=== PATIENT | male | born 1960 | race Caucasian/White ===

== ENCOUNTER 2020-07-14 12:07 | Emergency (ER) | payer OTHER, SELFPAY ==
[2020-07-14 12:30] VITALS: BP 152/90; PULSE 70; RESP 16; TEMP 36.8; O2SAT 97; BMI 39.9
--- NOTE | 2020-07-14 14:09 | ED_ITS ---
HPI - Back Pain/Injury <Susu Youssef, GRILL ASSOCIATE-BC - Last Filed: 07/14/20 18:55> General Chief Complaint: Back Pain/Injury Stated Complaint: back, pinched nerve, flat on back all week Time Seen by Provider: 07/14/20 13:36 Source: patient Mode of arrival: Ambulatory Limitations: no limitations History of Present Illness HPI Narrative: The patient is a 59 year old male who presents with a chief c omplaint of lower back pain. This has been going on for approximately 10-14 days. He states he saw [facility] on Friday and was given an injection of a steroid. He states that this has not helped his pain or his numbness going down his left leg. He denies any incontinence of bowel, incontinence of bladder or saddle anesthesia. He states he has never had incontinence of bowel, incontinence of bladder saddle anesthesia throughout his back pain episodes. He states his pain is worse with movement. He states he is doing really good resting and lying flat for the past few days, but then yesterday he spent a lot of time sitting during Thanksgiving. He took acetaminophen and naproxen at 10:30 a.m. with no relief. He also took 5 mg cyclobenzaprine this morning at the same time. He denies any fevers nausea vomiting diarrhea. Denies any chest pain or shortness of breath. Related Data Home Medications Medication Instructions Recorded Confirmed aspirin 81 mg PO QDAY #0 07/02/16 06/05/20 citalopram 10 mg PO QDAY #0 07/02/16 06/05/20 telmisartan-hydrochlorothiazid 1 tab PO QDAY #0 07/02/16 06/05/20 [Micardis HCT] vitamin B complex [B 1 tab PO QDAY #0 07/02/16 06/05/20 Complex-Vitamin B12] bupropion HCl 300 mg 24 hr tablet, 300 mg PO QAM 08/31/19 06/05/20 extended release Previous Rx's Medication Instructions Recorded albuterol sulfate 90 mcg/actuation 2 puff INHALATION Q4-6H PRN #8.5 06/16/19 aerosol inhaler gram cyclobenzaprine 10 mg tablet 10 mg PO BID #20 tab 06/05/20 cyclobenzaprine 10 mg PO TID PRN #10 tab 07/14/20 hydrocodone-acetaminophen [Cheyenne] 1 tab PO Q4-6H PRN #10 tab 07/14/20 lidocaine 1 patch TOPICAL DAILY PRN #15 ea 07/14/20 prednisone 40 mg PO DAILY #8 tab 07/14/20 Allergies Allergy/AdvReac Type Severity Reaction Status Date / Time No Known Drug Allergies Allergy Verified 07/14/20 12:34 Review of Systems <RENNY Rodrigez - Last Filed: 07/14/20 18:55> Review of Systems Narrative: GENERAL: Denies chills, fatigue, malaise, fever, sweats. HEENT: Denies sinus pain, ear pain, sore throat, difficulty swallowing, dizziness. RESPIRATORY: Denies dyspnea, cough, wheezing, hemoptysis, sputum. CARDIOVASCULAR: Denies chest pain, palpitations, orthopnea, edema, GASTROINTESTINAL: Denies nausea, vomiting, abdominal pain, diarrhea, constipation, melena. : Denies dysuria, frequency, incontinence, hematuria, urinary retention. MUSCULOSKELETAL: See HPI SKIN: Denies rash, skin lesions, or other NEUROLOGIC: See HPI PSYCHIATRIC: No concerning psychosocial issues. 12 point review of systems is negative except for those stated above Patient History <RENNY Rodrigez - Last Filed: 07/14/20 18:55> Medical History (Updated 07/14/20 @ 17:21 by RENNY Rodrigez) Low back strain Social History Smoking Status: Never smoker Smoking Status: Never smoker alcohol intake frequency: holidays/special occasions only Substance Use Type: does not use Exam <RENNY Rodrigez - Last Filed: 07/14/20 18:55> Narrative Exam Narrative: GENERAL: This is a well-nourished, well-developed patient, lying on stretcher appears slightly uncomfortable HEAD: Atraumatic. Normocephalic. No temporal or scalp tenderness. EYES: Pupils equal round and reactive. Extraocular motions intact. No scleral icterus. No injection or drainage. ENT: Nose without bleeding, purulent drainage or septal hematoma. Throat without erythema, tonsillar hypertrophy or exudate. Uvula midline. Airway patent. NECK: Trachea midline. No JVD or lymphadenopathy. Supple, nontender, no meningeal signs. CARDIOVASCULAR: Regular rate and rhythm RESPIRATORY: Clear to auscultation. Breath sounds equal bilaterally. No wheezes, rales, or rhonchi. No cough. No increased respiratory effort. No accessory muscle use. GASTROINTESTINAL: Abdomen soft, non-tender, nondistended. No hepato- splenomegaly, or palpable masses. No guarding. Active bowel sounds all 4 quadrants. EXTREMITIES: No clubbing, cyanosis, or edema. No joint tenderness, effusion, or edema noted. Strength is equal upper and lower extremities bilaterally. BACK: Pain to palpation of lumbar spine, no pain to palpation of T or C-spine. No palpable step-offs or deformities. No crepitance noted. Patient has pain to palpation of left paraspinal muscle, radiating down to left buttock. NEURO: AOx3. SKIN: No rash or erythema on visible skin. No erythema rash or abrasion overlying or act Initial Vital Signs Initial Vital Signs: Vital Signs Temperature 98.2 F 07/14/20 12:30 Pulse Rate 70 07/14/20 12:30 Respiratory Rate 16 07/14/20 12:30 Blood Pressure 152/90 H 07/14/20 12:30 Pulse Oximetry 97 07/14/20 12:30 <Susu Beard DO - Last Filed: 07/14/20 19:35> Initial Vital Signs Initial Vital Signs: Vital Signs Temperature 98.2 F 07/14/20 12:30 Pulse Rate 70 07/14/20 12:30 Respiratory Rate 16 07/14/20 12:30 Blood Pressure 152/90 H 07/14/20 12:30 Pulse Oximetry 97 07/14/20 12:30 Scores <RENNY Rodrigez - Last Filed: 07/14/20 18:55> GCS [place] coma scale eye opening: Spontaneous [place] coma scale verbal response: Orientated [place] coma scale motor response: Obey commands [place] coma scale total score: 15 Course <RENNY Rodrigez - Last Filed: 07/14/20 18:55> Orders Ordered: Discontinued Medications Hydrocodone Bitart/Acetaminophen (Hydrocodone/Acet 5/325 Tablet) 1 tab PO NOW ONE Stop: 07/14/20 15:08 Last Admin: 07/14/20 15:50 Dose: 1 tab Documented by: RMARTIN Cyclobenzaprine HCl (Cyclobenzaprine 5 Mg Tablet) 5 mg PO NOW ONE Stop: 07/14/20 14:06 Last Admin: 07/14/20 14:18 Dose: 5 mg Documented by: JOSE CARLOS Lidocaine (Lidocaine Patch 1 Each Adh..Patch) 1 each TOP NOW ONE Stop: 07/14/20 14:06 Last Admin: 07/14/20 14:18 Dose: 1 each Documented by: JOSE CARLOS Prednisone (Prednisone 20 Mg Tablet) 60 mg PO NOW ONE Stop: 07/14/20 15:15 Last Admin: 07/14/20 15:50 Dose: 60 mg Documented by: JOSE CARLOS Vital Signs Vital signs: Vital Signs - 8 hr 07/14/20 12:30 07/14/20 14:30 07/14/20 15:57 Temperature 98.2 F Pulse Rate 70 68 55 L Respiratory Rate 16 18 16 Blood Pressure 152/90 H 178/72 H 171/97 H Pulse Oximetry 97 97 97 07/14/20 16:27 07/14/20 17:46 Temperature Pulse Rate 67 50 L Respiratory Rate 16 18 Blood Pressure 150/85 H 154/84 H Pulse Oximetry 99 96 <Susu Beard, - Last Filed: 07/14/20 19:35> Orders Ordered: Discontinued Medications Hydrocodone Bitart/Acetaminophen (Hydrocodone/Acet 5/325 Tablet) 1 tab PO NOW ONE Stop: 07/14/20 15:08 Last Admin: 07/14/20 15:50 Dose: 1 tab Documented by: JOSE CARLOS Cyclobenzaprine HCl (Cyclobenzaprine 5 Mg Tablet) 5 mg PO NOW ONE Stop: 07/14/20 14:06 Last Admin: 07/14/20 14:18 Dose: 5 mg Documented by: JOSE CARLOS Lidocaine (Lidocaine Patch 1 Each Adh..Patch) 1 each TOP NOW ONE Stop: 07/14/20 14:06 Last Admin: 07/14/20 14:18 Dose: 1 each Documented by: JOSE CARLOS Prednisone (Prednisone 20 Mg Tablet) 60 mg PO NOW ONE Stop: 07/14/20 15:15 Last Admin: 07/14/20 15:50 Dose: 60 mg Documented by: JOSE CARLOS Vital Signs Vital signs: Vital Signs - 8 hr 07/14/20 12:30 07/14/20 14:30 07/14/20 15:57 Temperature 98.2 F Pulse Rate 70 68 55 L Respiratory Rate 16 18 16 Blood Pressure 152/90 H 178/72 H 171/97 H Pulse Oximetry 97 97 97 07/14/20 16:27 07/14/20 17:46 Temperature Pulse Rate 67 50 L Respiratory Rate 16 18 Blood Pressure 150/85 H 154/84 H Pulse Oximetry 99 96 [facility] - Back Pain/Injury <KATIE RodrigezP-BC - Last Filed: 07/14/20 18:55> [facility] Narrative Medical decision making narrative: The patient is a 59 year old male who presents with a chief complaint of lower back pain. He had a steroid injection earlier this week. He denies any fevers nausea vomiting, constitutional symptoms, but states understanding that these are strict return precautions. He has no incontinence of bowel, incontinence of bladder numbness in his groin and adamantly declines a rectal exam during his ER stay. I did discuss that these are strict return precautions and he is to come back to the ER if these reoccurred. He feels much improved after the above-stated therapies. I encouraged rest, follow-up with primary care provider as well as orthopedist. The patient has no questions or concerns upon discharge and states understanding return precautions as well as follow-up care. He is able to ambulate well throughout his stay in the ER. Discharge Plan Departure Patient Disposition: Home Clinical Impression: Low back strain Qualifiers: Encounter type: initial encounter Qualified Code(s): S39.012A - Strain of muscle, fascia and tendon of lower back, initial encounter Acute low back pain Qualifiers: Back pain laterality: left Sciatica presence: with sciatica Sciatica laterality: sciatica of left side Qualified Code(s): M54.42 - Lumbago with sciatica, left side Instructions: DI for Low Back Pain, DI for Back Spasm, DI for Back Strain or Sprain Activity Restrictions/Additional Instructions: Thank you for trusting us with your care today. As discussed, please follow-up with primary care provider as well as your orthopedist. I sent four prescriptions to [facility]. As discussed, please come back to the ER for acute concerns include incontinence of bowel, incontinence of bladder or numbness in your groin. Also please monitor for fevers, muscle aches chills and signs of systemic illness. Please follow-up with this occurs. I have given you a prescription of a narcotic for pain. Be aware that this can be constipating and sedating. I encouraged taking with a stool softener, pushing fluids and fiber. Do not take and drive, operate heavy machinery, etc. Do not combine it with any other sedating substances such as alcohol. The combination of narcotics and alcohol and/or other sedatives can be lethal. I also sent a prescription of Flexeril or cyclobenzaprine which can be sedating. Do not take this and drive. Additionally I have given you a prescription of lidocaine patches. Please do not use heat over these patches. Prescriptions: New hydrocodone-acetaminophen [[place]yenne] 5-325 mg tablet 1 tab PO Q4-6H PRN (Reason: pain) Qty: 10 RF: 0 cyclobenzaprine 10 mg tablet 10 mg PO TID PRN (Reason: muscle spasm) Qty: 10 RF: 0 lidocaine 5 % adhesive patch,medicated 1 patch topical DAILY PRN (Reason: pain ) Qty: 15 RF: 0 prednisone 20 mg tablet 40 mg PO DAILY Qty: 8 RF: 0 No Action albuterol sulfate 90 mcg/actuation HFA aerosol inhaler 2 puff INHALATION Q4-6H PRN (Reason: bronchospasm) Qty: 8.5 RF: 0 cyclobenzaprine 10 mg tablet 10 mg PO BID Qty: 20 RF: 0 bupropion HCl 300 mg tablet extended release 24 hr 300 mg PO QAM RF: 0 telmisartan-hydrochlorothiazid [Micardis HCT] 40 MG/12.5 MG tablet 1 tab PO QDAY Qty: 0 RF: 0 citalopram 10 MG tablet 10 mg PO QDAY Qty: 0 RF: 0 aspirin 81 MG tablet,delayed release (DR/EC) 81 mg PO QDAY Qty: 0 RF: 0 vitamin B complex [B Complex-Vitamin B12] 1 EACH tablet 1 tab PO QDAY Qty: 0 RF: 0 Referrals: Leoncio Castorena MD [Primary Care Provider] - <Susu Beard DO - Last Filed: 07/14/20 19:35> Cosign ED Attending Cosignature Attestation: I was immediately available in the department for consultation. This documentation has been reviewed and I agree with assessment and plan, case was discussed. No red flag symptoms at this time. Supervised by Susu Beard DO
[2020-07-14] MEDS: LIDOCAINE PATCH 1 EACH ADH..PATCH TOP (14:18)
[2020-07-14] MEDS: CYCLOBENZAPRINE 5 MG TABLET PO (14:18)
[2020-07-14 14:30] VITALS: BP 178/72; PULSE 68; RESP 18; O2SAT 97
[2020-07-14] MEDS: HYDROCODONE/ACET 5/325 TABLET 1 TAB PO (15:50)
[2020-07-14] MEDS: predniSONE 20 MG TABLET 60 MG PO (15:50)
[2020-07-14 15:57] VITALS: BP 171/97; PULSE 55; RESP 16; O2SAT 97
[2020-07-14 16:27] VITALS: BP 150/85; PULSE 67; RESP 16; O2SAT 99
[2020-07-14 17:46] VITALS: BP 154/84; PULSE 50; RESP 18; O2SAT 96
== END 2020-07-14 17:48 | disposition home or self-care (01) ==
PROVIDERS: Emergency Provider Nurse Practitioner Family; PCP Internal Medicine
DX: S39.012A Strain of muscle, fascia and tendon of lower back, initial encounter (principal); M54.42 Lumbago with sciatica, left side; R20.0 Anesthesia of skin
CPT/HCPCS: 99281; 99283

== ENCOUNTER → 2020-07-21 17:42 | Outpatient (CLI) | payer OTHER, SELFPAY ==
--- NOTE | 2020-07-21 | DI.MRI.S_ITS ---
PROCEDURE: MR LUMBAR SPINE WO CON INDICATIONS: Radiculopathy, lumbar region TECHNIQUE: Noncontrast sagittal T1 spin echo and T2 fast echo, sagittal STIR, axial T1 and T2 fast spin echo through the lumbar spine. In cases with scoliosis, additional coronal T2 fast spin echo may be performed. COMPARISON: [facility] [place], CR, XR LUMBAR SPINE WITH OLBIQUES PLUS FLEXION EXTENSION, 07/10/2020, 14:39. FINDINGS: Image quality: Excellent. Alignment and Curvature: Mild retrolisthesis is seen at the L3-L4 level. Minimal retrolisthesis is seen at L5-S1. Bone Marrow: Marrow is of normal overall signal. No acute vertebral body compression fractures. Spinal Cord: Conus medullaris terminates at the L1 level. Visualized cord demonstrates normal signal and size. Paraspinous Soft Tissues: No paravertebral masses. T12-L1: No significant abnormality is seen. L1-L2: Normal appearance. L2-L3: The disc height and disk signal are well-preserved. Moderate generalized disc bulge is seen. There is moderate right-sided and [id number] left-sided facet hypertrophy seen. There is moderate bilateral neural foraminal narrowing seen. Moderate central canal narrowing is seen. L3-L4: Moderate loss of disc height is seen. Loss of disc signal is seen. Moderate to prominent disc bulge is seen. There is a central disc protrusion. At least moderate facet hypertrophy is seen at this level. Moderate to severe bilateral neural foraminal narrowing can be seen, right worse than left. There is a degree of compression seen upon the exiting nerve roots. Moderate to severe central canal narrowing is seen, as on series 4, image 21. L4-L5: At least moderate loss of disc height and disc signal can be seen. At least moderate disc bulge is seen, which is eccentric to the right. There is a right lateral recess disc extrusion, with superior migration of the disc material, as on series 2, image 9. Moderate facet joint hypertrophy is seen. Moderate to severe bilateral neural foraminal narrowing can be seen, right worse than left. There is a degree of compression seen upon the exiting nerve roots. There is severe central canal narrowing, which is worsened by prominent epidural fat, as on series 4, image 25. L5-S1: At least moderate loss of disc height and disc signal can be seen. Reactive marrow endplate changes are seen, which are hyperintense on T1-weighted and T2-weighted imaging and most consistent with fatty metaplasia (Modic type II changes). At least moderate disc bulge is seen, which is eccentric to the left. There is a central/left disc protrusion seen. Moderate facet joint hypertrophy is seen. There is moderate to severe bilateral neural foraminal narrowing seen, left worse than right. There is a degree of compression seen upon the exiting nerve roots. Moderate central canal narrowing is seen. IMPRESSION: Relatively prominent lower lumbar spine degenerative changes are seen. Moderate to severe bilateral neural foraminal narrowing can be seen at L3-L4, L4-L5, and L5-S1, with associated exiting nerve root compression. There is moderate to severe central canal narrowing at the L3-L4 and severe central canal narrowing at L4-L5. Dictated by: Kirk Healy M.D. on 07/21/2020 at 17:23 Approved by: Kirk Healy M.D. on 07/21/2020 at 17:27
== END ==
PROVIDERS: PCP Internal Medicine; Referring Provider Internal Medicine; Visit Provider Physical Medicine & Rehabilitation Pain Medicine
DX: M47.26 Other spondylosis with radiculopathy, lumbar region (principal); M48.061 Spinal stenosis, lumbar region without neurogenic claudication; M48.07 Spinal stenosis, lumbosacral region
CPT/HCPCS: 72148

== ENCOUNTER 2020-08-05 12:12 | Emergency (ER) | payer OTHER, SELFPAY ==
[2020-08-05] VITALS (17 sets, daily range): BP systolic 135–195; BP diastolic 62–97; PULSE 53–63; RESP 14–18; TEMP 36.9; O2SAT 92–99; BMI 41.3
--- NOTE | 2020-08-05 12:30 | ED.BACK ---
HPI - Back Pain/Injury General Chief Complaint: Back Pain/Injury Stated Complaint: Back Pain Time Seen by Provider: 08/05/20 12:23 Source: patient and EMS Mode of arrival: EMS Limitations: no limitations History of Present Illness HPI Narrative: Patient is a 59-year-old male who presents with worsening back pain. He has acute on chronic back pain he has had injections in the past in fact yesterday he had an epidural with [facility]. He said yesterday he felt great and this morning he woke up early with debilitating pain. He has gabapentin and pain medication at home but it was on bearable. He describes it as a spasm. He has been doing ice and heat at nothing seems to be making it worse. He denies any loss of bowel or urine. He denies any fever or lower extremity weakness. Related Data Home Medications Medication Instructions Recorded Confirmed aspirin 81 mg PO QDAY #0 07/02/16 06/05/20 citalopram 10 mg PO QDAY #0 07/02/16 06/05/20 telmisartan-hydrochlorothiazid 1 tab PO QDAY #0 07/02/16 06/05/20 [Micardis HCT] vitamin B complex [B 1 tab PO QDAY #0 07/02/16 06/05/20 Complex-Vitamin B12] bupropion HCl 300 mg 24 hr tablet, 300 mg PO QAM 08/31/19 06/05/20 extended release Previous Rx's Medication Instructions Recorded albuterol sulfate 90 mcg/actuation 2 puff INHALATION Q4-6H PRN #8.5 06/16/19 aerosol inhaler gram cyclobenzaprine 10 mg tablet 10 mg PO BID #20 tab 06/05/20 cyclobenzaprine 10 mg PO TID PRN #10 tab 07/14/20 hydrocodone-acetaminophen [[place]] 1 tab PO Q4-6H PRN #10 tab 07/14/20 lidocaine 1 patch TOPICAL DAILY PRN #15 ea 07/14/20 prednisone 40 mg PO DAILY #8 tab 07/14/20 diazepam [Valium] 5 mg PO Q12HR PRN #10 tab 08/05/20 Allergies Allergy/AdvReac Type Severity Reaction Status Date / Time No Known Drug Allergies Allergy Verified 08/05/20 12:26 Review of Systems Review of Systems Narrative: GENERAL: Denies chills, fatigue, malaise, fever, sweats, travel HEENT: Denies sinus pain, ear pain, sore throat, difficulty swallowing, neck pain RESPIRATORY: Denies dyspnea, cough, wheezing, hemoptysis, sputum. CARDIOVASCULAR: Denies chest pain, palpitations, orthopnea, edema GASTROINTESTINAL: Denies nausea, vomiting, abdominal pain, diarrhea, constipation, melena. : Denies dysuria, frequency, incontinence, hematuria, urinary retention, flank pain. MUSCULOSKELETAL: See HPI SKIN: No rash, no erythema, no pruritus NEUROLOGIC: Denies weakness, dizziness, headache, numbness, change in speech, confusion PSYCHIATRIC: No concerning psychosocial issues. 12 point review of systems is negative except for those stated above and HPI Patient History Medical History Low back strain Social History Smoking Status: Never smoker Smoking Status: Never smoker alcohol intake frequency: holidays/special occasions only Substance Use Type: marijuana Exam Initial Vital Signs Initial Vital Signs: Vital Signs Pulse Rate 63 08/05/20 12:19 Pulse Oximetry 98 08/05/20 12:19 GENERAL: Patient yelling and screaming in and in no acute distress. HEENT: Head atraumatic,EOMI, pupils reactive, face symmetric, moist mucous membranes CARDIOVASCULAR: Regular rate and rhythm without murmurs, rubs or gallops. RESPIRATORY: Breath sounds equal bilaterally, no wheezes rales or rhonchi. ABDOMEN: Soft, nontender. Normoactive bowel sounds all 4 quadrants. No guarding or rebound. BACK: Tender left lumbar area EXTREMITIES: Normal range of motion, no clubbing or edema. Neurovascularly intact NEUROLOGICAL: Alert and oriented x4.Normal gait and speech. Neurovascularly intact in the lower extremities SKIN: Warm, dry, no laceration, no petechiae, no rashes or lesions. Course Orders Ordered: ED Orders 08/05/20 12:36 MR lumbar spine wo/w con Stat 08/05/20 13:02 Complete Blood Count AUTO DIFF Stat Comprehensive Metabolic Panel Stat Discontinued Medications Diazepam (Diazepam 10 Mg/2 Ml Syringe) 2 mg IV NOW ONE Stop: 08/05/20 12:37 Last Admin: 08/05/20 12:47 Dose: 2 mg Documented by: KSWACKH Hydromorphone HCl (Hydromorphone 1 Mg Inj) 1 mg IM NOW ONE Stop: 08/05/20 12:37 Last Admin: 08/05/20 12:47 Dose: 1 mg Documented by: ANTWON Hydromorphone HCl (Hydromorphone 1 Mg Inj) 1 mg IV NOW ONE Stop: 08/05/20 14:10 Last Admin: 08/05/20 14:13 Dose: 1 mg Documented by: JOSE CARLOS Ketorolac Tromethamine (Ketorolac 60 Mg/2 Ml Vial) 30 mg IV NOW ONE Stop: 08/05/20 16:56 Last Admin: 08/05/20 17:00 Dose: 30 mg Documented by: ALIVIA Vital Signs Vital signs: Vital Signs - 8 hr 08/05/20 12:19 08/05/20 12:21 08/05/20 12:22 Temperature 98.4 F Pulse Rate 63 61 59 L Respiratory Rate 14 Blood Pressure 182/97 H 186/90 H Pulse Oximetry 98 97 99 08/05/20 12:30 08/05/20 13:00 08/05/20 13:01 Temperature Pulse Rate 58 L 63 61 Respiratory Rate Blood Pressure 195/93 H 151/67 H Pulse Oximetry 96 94 92 08/05/20 13:30 08/05/20 13:55 08/05/20 15:04 Temperature Pulse Rate 55 L 55 L 58 L Respiratory Rate 16 Blood Pressure 140/68 135/77 Pulse Oximetry 93 95 95 08/05/20 15:30 08/05/20 15:31 08/05/20 16:00 Temperature Pulse Rate 60 57 L 58 L Respiratory Rate Blood Pressure 138/66 Pulse Oximetry 92 92 94 08/05/20 16:01 08/05/20 16:30 08/05/20 16:31 Temperature Pulse Rate 56 L 56 L 56 L Respiratory Rate 16 16 16 Blood Pressure 139/62 143/65 H Pulse Oximetry 94 95 94 08/05/20 17:00 08/05/20 17:01 Temperature Pulse Rate 53 L 57 L Respiratory Rate 18 Blood Pressure 142/70 H Pulse Oximetry 94 95 MDM - Back Pain/Injury Lab Data Attestation: I reviewed the patient's lab results. Result diagrams: 08/05/20 13:02 08/05/20 13:02 Labs: Lab Results 08/05/20 08/05/20 Range/Units 13:02 13:02 WBC 11.5 H (4.5-11.0) X10^3/uL RBC 4.66 (4.5-5.9) X10^6/uL Hgb 13.9 (13.5-17.5) g/dL Hct 41.4 (41-53) % MCV 88.8 (80-100) fL MCH 29.8 (26-34) PG MCHC 33.6 (30-36) % RDW 14.1 (11.6-14.8) % Plt Count 192 (150-400) X10^3/uL Neut % (Auto) 75.0 (50-75) % Lymph % (Auto) 17.2 L (25-40) % [place] % (Auto) 6.2 (3-14) % Eos % (Auto) 1.2 L (2-4) % Baso % (Auto) 0.4 (0-2) % Neut # (Auto) 8600 H (8793-7147) /uL Lymph # (Auto) 2000 (0682-0504) /uL [place] # (Auto) 700 (0-900) /uL Eos # (Auto) 100 (0-450) /uL Baso # (Auto) 100 (0-100) /uL Sodium 137 (137-145) mmol/L Potassium 4.4 (3.4-5.1) mmol/L Chloride 102 (98-107) mmol/L Carbon Dioxide 30 (22-32) mmol/L BUN 34 H (9-20) mg/dL Creatinine 1.10 (0.66-1.25) mg/dL Estimated GFR > 60.0 (>60) mL/min BUN/Creatinine Ratio 30.9 H (6-22) Glucose 168 H (80-110) mg/dL Calcium 9.8 (8.4-10.2) mg/dL Total Bilirubin 0.6 (0.2-1.3) mg/dL AST 18 (17-59) IU/L ALT 30 (<50) IU/L Alkaline Phosphatase 56 (38-126) U/L Total Protein 7.2 (6.3-8.2) g/dL Albumin 4.2 (3.5-5.0) g/dL Globulin 3.0 (1.7-4.1) g/dL Albumin/Globulin Ratio 1.4 (1.0-2.8) Imaging Data MRI lumbar: Radiologist's Impression: PROCEDURE: MR LUMBAR SPINE WO/W CON INDICATIONS: Increased pain epidural yesterday TECHNIQUE: Noncontrast sagittal T1 spin echo and T2 fast spin echo, sagittal STIR, axial T1 and T2 fast spin echo through the lumbar spine. In cases with scoliosis, additional coronal T2 fast spin echo may be performed. After the administration of contrast, sagittal and axial T1 spin echo with fat saturation through the lumbar spine. COMPARISON: [facility] [place], CR, XR LUMBAR SPINE WITH OLBIQUES PLUS FLEXION EXTENSION, 07/10/2020, 14:39. [facility], , MR LUMBAR SPINE WO CON, 07/21/2020, 17:50. FINDINGS: Image quality: Excellent. Alignment and curvature: Mild retrolisthesis of L3 on L4. Minimal retrolisthesis of L5 on S1. Unchanged. Marrow: Marrow is of normal overall signal. No acute vertebral body compression fractures. No suspicious marrow enhancement. Spinal cord: Conus medullaris terminates at the L1 level. Visualized spinal cord demonstrates normal signal, without suspicious enhancement. No fluid collection within the thecal sac is identified. No abnormal enhancement is identified. No interval change is appreciated. Paraspinous soft tissues: No paravertebral masses or abnormal enhancement. Mild lumbar edema, unchanged. Moderate degenerative change. Moderate to severe DDD. No significant change appreciated compared to recent lumbar spine MRI 07/21/2020. Right paracentral disc protrusions at L3-L4, L4-L5, and L5-S1 are unchanged. Prominent epidural fat signal left at L4 is unchanged, (5/24). No suspicious enhancement at this site. Slightly superior to this site is a small focus of suspected extruded disc material which is unchanged in size and appearance compared to 07/21/2020. IMPRESSION: 1. No epidural abscess or fluid collection is identified. No suspicious enhancement. 2. Overall no interval change is appreciated. 3. Lower lumbar spine disc protrusions and disc extrusion are unchanged in the short-term interval. Severe central canal stenosis at L4-L5 is unchanged. Dictated by: Sonu Grimaldo M.D. on 08/05/2020 at 15:26 Approved by: Sonu Grimaldo M.D. on 08/05/2020 at 15:45 MDM Narrative Medical decision making narrative: Patient's pain was significantly improved dilaudid and Valium. He does not have any neurologic symptoms except for increased pain after procedure. Concern for epidural hematoma or abscess. Patient is afebrile mild leukocytosis. Pain medication really has seem to help calm him down. MR is luckily negative. Will discharge patient home with Valium recommend nonstrenuous activity. Discharge Plan Departure Patient Disposition: Home Clinical Impression: Low back strain Instructions: DI for Back Spasm Activity Restrictions/Additional Instructions: *You have been diagnosed with low back pain with spasm *What to do: Recommend light activity no strenuous activity or heavy lifting. Recommend heat. *Continue to take medications as directed Valium 5 mg every 12 hours if needed for muscle spasm Ibuprofen 600 mg every 6-8 hours if needed for [id number] pain *Follow up with your primary care provider in 2-3 days *Return to ER if you should have increasing pain changes in bowel or urine, it weakness numbness or tingling or any new, worsening or concerning symptoms Prescriptions: New diazepam [Valium] 5 mg tablet 5 mg PO Q12HR PRN (Reason: muscle spasm) Qty: 10 RF: 0 No Action albuterol sulfate 90 mcg/actuation HFA aerosol inhaler 2 puff INHALATION Q4-6H PRN (Reason: bronchospasm) Qty: 8.5 RF: 0 cyclobenzaprine 10 mg tablet 10 mg PO BID Qty: 20 RF: 0 bupropion HCl 300 mg tablet extended release 24 hr 300 mg PO QAM RF: 0 telmisartan-hydrochlorothiazid [Micardis HCT] 40 MG/12.5 MG tablet 1 tab PO QDAY Qty: 0 RF: 0 citalopram 10 MG tablet 10 mg PO QDAY Qty: 0 RF: 0 aspirin 81 MG tablet,delayed release (DR/EC) 81 mg PO QDAY Qty: 0 RF: 0 vitamin B complex [B Complex-Vitamin B12] 1 EACH tablet 1 tab PO QDAY Qty: 0 RF: 0 hydrocodone-acetaminophen [[place]] 5-325 mg tablet 1 tab PO Q4-6H PRN (Reason: pain) Qty: 10 RF: 0 cyclobenzaprine 10 mg tablet 10 mg PO TID PRN (Reason: muscle spasm) Qty: 10 RF: 0 lidocaine 5 % adhesive patch,medicated 1 patch topical DAILY PRN (Reason: pain ) Qty: 15 RF: 0 prednisone 20 mg tablet 40 mg PO DAILY Qty: 8 RF: 0 Referrals: Leoncio Castorena MD [Primary Care Provider] -
--- NOTE | 2020-08-05 12:36 | DI.MRI.S_ITS ---
PROCEDURE: MR LUMBAR SPINE WO/W CON INDICATIONS: Increased pain epidural yesterday TECHNIQUE: Noncontrast sagittal T1 spin echo and T2 fast spin echo, sagittal STIR, axial T1 and T2 fast spin echo through the lumbar spine. In cases with scoliosis, additional coronal T2 fast spin echo may be performed. After the administration of contrast, sagittal and axial T1 spin echo with fat saturation through the lumbar spine. COMPARISON: [facility] [place], CR, XR LUMBAR SPINE WITH OLBIQUES PLUS FLEXION EXTENSION, 07/10/2020, 14:39. [facility], , MR LUMBAR SPINE WO CON, 07/21/2020, 17:50. FINDINGS: Image quality: Excellent. Alignment and curvature: Mild retrolisthesis of L3 on L4. Minimal retrolisthesis of L5 on S1. Unchanged. Marrow: Marrow is of normal overall signal. No acute vertebral body compression fractures. No suspicious marrow enhancement. Spinal cord: Conus medullaris terminates at the L1 level. Visualized spinal cord demonstrates normal signal, without suspicious enhancement. No fluid collection within the thecal sac is identified. No abnormal enhancement is identified. No interval change is appreciated. Paraspinous soft tissues: No paravertebral masses or abnormal enhancement. Mild lumbar edema, unchanged. Moderate degenerative change. Moderate to severe DDD. No significant change appreciated compared to recent lumbar spine MRI 07/21/2020. Right paracentral disc protrusions at L3-L4, L4-L5, and L5-S1 are unchanged. Prominent epidural fat signal left at L4 is unchanged, (5/). No suspicious enhancement at this site. Slightly superior to this site is a small focus of suspected extruded disc material which is unchanged in size and appearance compared to 07/21/2020. IMPRESSION: 1. No epidural abscess or fluid collection is identified. No suspicious enhancement. 2. Overall no interval change is appreciated. 3. Lower lumbar spine disc protrusions and disc extrusion are unchanged in the short-term interval. Severe central canal stenosis at L4-L5 is unchanged. Dictated by: Sonu Grimaldo M.D. on 08/05/2020 at 15:26 Approved by: Sonu Grimaldo M.D. on 08/05/2020 at 15:45
[2020-08-05] MEDS: diazePAM 10 MG/2 ML SYRINGE 2 MG IV (12:47)
[2020-08-05] MEDS: HYDROMORPHONE 1 MG INJ IM (12:47)
--- NOTE | 2020-08-05 12:58 | PC.NURSE ---
alida arrived with ems, states he had an epidural yesterday and premedicated for it. today he states he woke up in extreme pain. moaning and yelling out in pain. unable to get comfortable on the stretcher. states he took 2 oxys and 4 extra strength tylenol at home with no relief.
[2020-08-05 13:08] LABS: Add Manual Diff / Slide Review NO; Basophils Absolute Auto 100 /uL (0-100); Basophils Percent Auto 0.4 % (0-2); Eosinophils Absolute Auto 100 /uL (0-450); Eosinophils Percent Auto 1.2 % (2-4); Hematocrit 41.4 % (41-53); Hemoglobin 13.9 g/dL (13.5-17.5); Lymphocytes Absolute Auto 2000 /uL (1100-4500); Lymphocytes Percent Auto 17.2 % (25-40); Mean Corpuscular HGB Conc 33.6 % (30-36); Mean Corpuscular Hemoglobin 29.8 PG (26-34); Mean Corpuscular Volume 88.8 fL (80-100); Monocytes Absolute Auto 700 /uL (0-900); Monocytes Percent Auto 6.2 % (3-14); Neutrophils Absolute Auto 8600 /uL (1500-7000); Platelet Count 192 X10^3/uL (150-400); Red Blood Cell Count 4.66 X10^6/uL (4.5-5.9); Red Cell Distribution Width 14.1 % (11.6-14.8); White Blood Cell Count 11.5 X10^3/uL (4.5-11.0)
[2020-08-05 13:19] LABS: Alanine Aminotransferase 30 IU/L (<50); Albumin 4.2 g/dL (3.5-5.0); Albumin Globulin Ratio 1.4 (1.0-2.8); Alkaline Phosphatase 56 U/L (38-126); Aspartate Aminotransferase 18 IU/L (17-59); BUN Creatinine Ratio 30.9 (6-22); Bilirubin Total 0.6 mg/dL (0.2-1.3); Blood Urea Nitrogen 34 mg/dL (9-20); Calcium 9.8 mg/dL (8.4-10.2); Carbon Dioxide 30 mmol/L (22-32); Chloride 102 mmol/L (98-107); Estimated Glomerular Filt Rate > 60.0 mL/min (>60); Glucose 168 mg/dL (80-110); HEMOLYSIS < 15 (0-50); Potassium 4.4 mmol/L (3.4-5.1); Sodium 137 mmol/L (137-145); Total Protein 7.2 g/dL (6.3-8.2)
[2020-08-05] MEDS: HYDROMORPHONE 1 MG INJ IV (14:13)
[2020-08-05] MEDS: KETOROLAC 60 MG/2 ML VIAL 30 MG IV (17:00)
== END 2020-08-05 17:30 | disposition home or self-care (01) ==
PROVIDERS: Emergency Provider Emergency Medicine; PCP Internal Medicine
DX: S39.012A Strain of muscle, fascia and tendon of lower back, initial encounter (principal); Z79.82 Long term (current) use of aspirin
CPT/HCPCS: 36415; 72158; 80053; 85025; 96372; 96374; 96375; 99283; 99284; J1170; J1885; J3360

== ENCOUNTER 2020-08-07 16:58 | Emergency (ER) | payer OTHER, SELFPAY ==
[2020-08-07 18:47] VITALS: BP 133/92; PULSE 66; RESP 20; TEMP 35.7; O2SAT 97; BMI 45.4
[2020-08-07 21:13] VITALS: PULSE 55; O2SAT 97
[2020-08-07 21:30] VITALS: PULSE 53; O2SAT 97
--- NOTE | 2020-08-07 21:55 | ED.BACK ---
HPI - Back Pain/Injury General Chief Complaint: Back Pain/Injury Stated Complaint: back pain, states nerve damage Time Seen by Provider: 08/07/20 17:29 Source: patient Mode of arrival: Ambulatory Limitations: no limitations History of Present Illness HPI Narrative: 59-year-old male nonsmoker with extensive history of low back pain and known radiculopathy presents with worsening left lumbar pain and radiation to his leg. He denies any new injury. He has been under the care of provider's and had a recent steroid injection which seemed to help briefly. His pain is significantly worse with movement and improves with rest through Friday radiates down his left leg and complains of ongoing numbness and tingling, particularly below his knee. He denies any weakness or footdrop. He has had no saddle anesthesia or trouble controlling bowel or bladder. MD Complaint: back pain Onset (ago): month(s) Duration: constant and progressively worsening Similar Symptoms Previously: Yes Location: lumbar spine and left lower back Quality: sharp and stabbing Radiation: left leg Relieving factors: immobilization and sitting upright Exacerbating factors: walking Related Data Home Medications Medication Instructions Recorded Confirmed aspirin 81 mg PO QDAY #0 07/02/16 06/05/20 citalopram 10 mg PO QDAY #0 07/02/16 06/05/20 telmisartan-hydrochlorothiazid 1 tab PO QDAY #0 07/02/16 06/05/20 [Micardis HCT] vitamin B complex [B 1 tab PO QDAY #0 07/02/16 06/05/20 Complex-Vitamin B12] bupropion HCl 300 mg 24 hr tablet, 300 mg PO QAM 08/31/19 06/05/20 extended release Previous Rx's Medication Instructions Recorded albuterol sulfate 90 mcg/actuation 2 puff INHALATION Q4-6H PRN #8.5 06/16/19 aerosol inhaler gram cyclobenzaprine 10 mg tablet 10 mg PO BID #20 tab 06/05/20 cyclobenzaprine 10 mg PO TID PRN #10 tab 07/14/20 hydrocodone-acetaminophen [[place]le] 1 tab PO Q4-6H PRN #10 tab 07/14/20 lidocaine 1 patch TOPICAL DAILY PRN #15 ea 07/14/20 prednisone 40 mg PO DAILY #8 tab 11/27/20 diazepam [Valium] 5 mg PO Q12HR PRN #10 tab 08/05/20 ketorolac 10 mg PO Q6H PRN #14 tab 08/07/20 prednisone See Rx Instructions .ROUTE 08/07/20 .COMPLEX #30 tab Allergies Allergy/AdvReac Type Severity Reaction Status Date / Time No Known Drug Allergies Allergy Verified 08/05/20 12:26 Review of Systems Constitutional Constitutional: Denies chills, Denies fatigue, Denies fever(s), Denies frequent falls, Denies lethargy and Denies weakness Eyes Eyes: Denies change in vision, Denies eye discharge, Denies irritation and Denies loss of vision ENT Ears, Nose, Mouth, and Throat: Denies change in voice, Denies dizziness, Denies neck pain, Denies sore throat and Denies throat swelling Cardiovascular Cardiovascular: Denies chest pain, Denies irregular heart rhythm, Denies lightheadedness, Denies palpitations, Denies dyspnea, Denies dyspnea on exertion and Denies orthopnea Respiratory Respiratory: Denies cough, Denies dyspnea, Denies dyspnea on exertion and Denies wheezing Gastrointestinal Gastrointestinal: Denies abdominal pain, Denies change in bowel habits, Denies diarrhea, Denies nausea and Denies vomiting Musculoskeletal Musculoskeletal: Reports back pain, Denies neck pain and Reports numbness Integumentary/Breasts Skin/Breast: Denies pruritus, Denies erythema, Denies rash and Denies wounds Neurologic Neurologic: Denies behavioral changes, Denies confusion, Denies dizziness, Denies frequent falls, Denies loss of vision, Reports numbness, Reports sensory deficit and Denies weakness Psychiatric Psychiatric: Denies anxiety, Denies behavioral changes, Denies confusion, Denies depression, Denies homicidal ideation and Denies suicidal ideation Endocrine Endocrine: Denies fatigue, Denies flushing and Denies palpitations Hematologic/Lymphatic Hematologic/Lymphatic: Denies easy bruising Allergic/Immunologic Allergic/Immunologic: Denies urticaria, Denies throat swelling and Denies wheezing Patient History Medical History Low back strain Social History Smoking Status: Never smoker Smoking Status: Never smoker alcohol intake frequency: holidays/special occasions only Substance Use Type: marijuana Exam Narrative Exam Narrative: GEN: AOx3 and in mild distress EYES: Pupils are equal, round, and reactive to light and accommodation. Extraoccular muscles are intact bilaterally. There is no subconjunctival hemorrhage or exudate. CHEST: Lungs are clear to auscultation bilaterally and free of wheezes, rales, or rhonchi. Heart rate is regular rhythm, there are no murmurs, clicks, rubs, or gallops. There is no chest wall tenderness. ABD: Abdomen is soft and nontender. There is no guarding or rebound. Bowel sounds are normal in all 4 quadrants. There is no mass or organomegaly. EXT: Full painless ROM of all extremities with no loss of sensation or strength. SKIN: Warm, pink, and dry. No erythema or rash BACK: coal washer tender but free of any obvious external abnormalities. Patient exam notes decreased range of motion and muscle spasm, but no CVA tenderness, or vertebral point tenderness. There are no symptoms of cauda equina such as saddle anesthesia,or weakness. Decreased patellar reflex noted on left leg. Initial Vital Signs Initial Vital Signs: Vital Signs Temperature 96.3 F L 08/07/20 18:47 Pulse Rate 66 08/07/20 18:47 Respiratory Rate 20 08/07/20 18:47 Blood Pressure 133/92 H 08/07/20 18:47 Pulse Oximetry 97 08/07/20 18:47 Course Orders Ordered: Discontinued Medications Ketorolac Tromethamine (Ketorolac 60 Mg/2 Ml Vial) 60 mg IM NOW ONE Stop: 08/07/20 22:08 Last Admin: 08/07/20 22:17 Dose: 60 mg Documented by: BILL Prednisone (Prednisone 20 Mg Tablet) 40 mg PO NOW ONE Stop: 08/07/20 22:08 Last Admin: 08/07/20 22:16 Dose: 40 mg Documented by: BILL Vital Signs Vital signs: Vital Signs - 8 hr 08/07/20 21:13 08/07/20 21:30 08/07/20 22:00 Pulse Rate 55 L 53 L 61 Blood Pressure Pulse Oximetry 97 97 98 08/07/20 22:32 Pulse Rate 57 L Blood Pressure 114/77 Pulse Oximetry 94 MDM - Back Pain/Injury MDM Narrative Medical decision making narrative: Multiple etiologies of back pain considered including; Epidural abscess, cauda equina, mass occupying lesion, and other considered Patient's symptoms improved over duration of stay with above-stated therapies. Findings and discharge diagnosis discussed with patient/family followed by verbalization of understanding Return precautions discussed with patient/family whom verbalize understanding. Discharge Plan Departure Patient Disposition: Home Clinical Impression: Acute left lumbar radiculopathy Instructions: DI for Back Pain With Sciatica Activity Restrictions/Additional Instructions: *You have been diagnosed with [lumbar pain with radiculopathy] *What to do: *Take medications as directed: [facility] *Follow up with your primary care provider in 2-3 days, call for an appointment. Let them know you were seen in the Emergency Department and that we ask that you be seen in follow up *Return to ER if you should have any new, worsening or concerning symptoms, such as [loss of control of bowel or bladder, weakness of your left leg, increasing pain or other bothersome symptoms] Prescriptions: New prednisone 10 mg tablet See Rx Instructions .ROUTE .COMPLEX Qty: 30 RF: 0 ketorolac 10 mg tablet 10 mg PO Q6H PRN (Reason: pain) Qty: 14 RF: 0 No Action albuterol sulfate 90 mcg/actuation HFA aerosol inhaler 2 puff INHALATION Q4-6H PRN (Reason: bronchospasm) Qty: 8.5 RF: 0 cyclobenzaprine 10 mg tablet 10 mg PO BID Qty: 20 RF: 0 bupropion HCl 300 mg tablet extended release 24 hr 300 mg PO QAM RF: 0 telmisartan-hydrochlorothiazid [Micardis HCT] 40 MG/12.5 MG tablet 1 tab PO QDAY Qty: 0 RF: 0 citalopram 10 MG tablet 10 mg PO QDAY Qty: 0 RF: 0 aspirin 81 MG tablet,delayed release (DR/EC) 81 mg PO QDAY Qty: 0 RF: 0 vitamin B complex [B Complex-Vitamin B12] 1 EACH tablet 1 tab PO QDAY Qty: 0 RF: 0 hydrocodone-acetaminophen [Noble] 5-325 mg tablet 1 tab PO Q4-6H PRN (Reason: pain) Qty: 10 RF: 0 cyclobenzaprine 10 mg tablet 10 mg PO TID PRN (Reason: muscle spasm) Qty: 10 RF: 0 lidocaine 5 % adhesive patch,medicated 1 patch topical DAILY PRN (Reason: pain ) Qty: 15 RF: 0 prednisone 20 mg tablet 40 mg PO DAILY Qty: 8 RF: 0 diazepam [Valium] 5 mg tablet 5 mg PO Q12HR PRN (Reason: muscle spasm) Qty: 10 RF: 0 Referrals: Leoncio Castorena MD [Primary Care Provider] -
[2020-08-07 22:00] VITALS: PULSE 61; O2SAT 98
[2020-08-07] MEDS: predniSONE 20 MG TABLET 40 MG PO (22:16)
[2020-08-07] MEDS: KETOROLAC 60 MG/2 ML VIAL IM (22:17)
[2020-08-07 22:32] VITALS: BP 114/77; PULSE 57; O2SAT 94
== END 2020-08-07 22:57 | disposition home or self-care (01) ==
PROVIDERS: Emergency Provider Emergency Medicine; PCP Internal Medicine
DX: M54.16 Radiculopathy, lumbar region (principal); M54.5 Low back pain
CPT/HCPCS: 99281; 99283; J1885

== ENCOUNTER → 2020-09-06 11:53 | Outpatient (CLI) | payer BC, SELFPAY ==
--- NOTE | 2020-09-06 | DI.RAD.S_ITS ---
PROCEDURE: XR CHEST 2V INDICATIONS: sob TECHNIQUE: 2 views of the chest were acquired. COMPARISON: None. FINDINGS: Surgical changes and devices: None. Lungs and pleura: Lungs are clear. No pleural effusions or pneumothorax. Mediastinum: Mediastinal contours are normal. Heart size is normal. Bones and chest wall: No suspicious bony abnormalities. Soft tissues appear unremarkable. IMPRESSION: Normal for age, source of current shortness of breath symptoms is not seen. Dictated by: Adam Abdullahi M.D. on 09/06/2020 at 14:15 Approved by: Adam Abdullahi M.D. on 09/06/2020 at 14:16
--- NOTE | 2020-09-06 | DI.RAD.S_ITS ---
PROCEDURE: XR SHOULDER LT MIN 2V INDICATIONS: neck pain TECHNIQUE: 3 views of the shoulder were acquired. COMPARISON: None. FINDINGS: Bones: No fractures or dislocations. No suspicious bony lesions. Visualized ribs appear intact. Soft tissues: No suspicious soft tissue calcifications. IMPRESSION: Moderate AC joint osteoarthritis, mild glenohumeral joint osteoarthritis. No trauma. Dictated by: Adam Abdullahi M.D. on 09/06/2020 at 14:14 Approved by: Adam Abdullahi M.D. on 09/06/2020 at 14:15
--- NOTE | 2020-09-06 | DI.RAD.S_ITS ---
PROCEDURE: XR CERVICAL SPINE 2V OR 3V INDICATIONS: neck pain TECHNIQUE: For view(s) of the cervical spine were acquired. COMPARISON: None. FINDINGS: Bones: No fractures or dislocations to the T1 level. The lateral masses of C1 appear intact on the odontoid view. No suspicious bony lesions. Soft tissues: No prevertebral soft tissue swelling. IMPRESSION: There is a [id number] degree of degenerative disc disease at C4-5 and especially C5-6 and C6-7. Facet osteoarthritis over the middle 3rd of the cervical spine appears moderate. Dictated by: Adam Abdullahi M.D. on 09/06/2020 at 14:14 Approved by: Adam Abdullahi M.D. on 09/06/2020 at 14:14
== END ==
PROVIDERS: PCP Internal Medicine; Referring Provider Internal Medicine; Visit Provider Internal Medicine
DX: R06.02 Shortness of breath (principal); M50.321 Other cervical disc degeneration at C4-C5 level; M47.812 Spondylosis without myelopathy or radiculopathy, cervical region; M19.012 Primary osteoarthritis, left shoulder
CPT/HCPCS: 71046; 72040; 73030

== ENCOUNTER → 2020-10-05 12:45 | Outpatient (CLI) | payer BC, SELFPAY ==
[2020-10-05 13:32] LABS: COVID19 -Nasal RAPID Negative (Negative)
[2020-10-06 10:06] LABS: Alanine Aminotransferase 35 IU/L (<50); Albumin 4.4 g/dL (3.5-5.0); Albumin Globulin Ratio 1.5 (1.0-2.8); Alkaline Phosphatase 61 U/L (38-126); Aspartate Aminotransferase 26 IU/L (17-59); BUN Creatinine Ratio 21.5 (6-22); Bilirubin Total 0.7 mg/dL (0.2-1.3); Blood Urea Nitrogen 23 mg/dL (9-20); Calcium 9.5 mg/dL (8.4-10.2); Carbon Dioxide 30 mmol/L (22-32); Chloride 100 mmol/L (98-107); Cholesterol 206 mg/dL (140-199); Estimated Glomerular Filt Rate > 60.0 mL/min (>60); Globulin 2.9 g/dL (1.7-4.1); Glucose 218 mg/dL (80-110); HDL Cholesterol 45 mg/dL (40-60); HEMOLYSIS < 15 (0-50); LDL Cholesterol Calculated 117 mg/dL (<100); Potassium 4.4 mmol/L (3.4-5.1); Sodium 137 mmol/L (137-145); Total Protein 7.3 g/dL (6.3-8.2); Triglycerides 221 mg/dL (35-150)
[2020-10-06 10:36] LABS: Cortisol AM (Before 10AM) 5.74 ug/dL (4.46-22.7)
== END ==
PROVIDERS: PCP Internal Medicine; Visit Provider Physician Assistant
DX: Z20.822 Contact with and (suspected) exposure to COVID-19 (principal)
CPT/HCPCS: 36415; 80053; 80061; 82533; 87635

== ENCOUNTER → 2020-10-27 08:15 | Outpatient (CLI) | payer BC, SELFPAY ==
[2020-10-27 09:17] LABS: Hemoglobin A1C% w Est Avg Glu 8.5 % (4.0-6.0)
[2020-10-27 09:48] LABS: Glucose 205 mg/dL (80-110)
== END ==
PROVIDERS: PCP Internal Medicine; Referring Provider Internal Medicine; Visit Provider Internal Medicine
DX: E09.9 Drug or chemical induced diabetes mellitus without complications (principal)
CPT/HCPCS: 36415; 82947; 83036

== ENCOUNTER → 2020-12-13 08:49 | Outpatient (CLI) | payer BC, SELFPAY ==
--- NOTE | 2020-12-13 10:15 | DIET.PN ---
Diabetes Intake: Initial Assessment Assess: Mr. Novak is a 59 yom referred for type 2 diabetes. He reports trying nearly every diet including weight watchers, nutri-system, ideal protein, 30/10. Lap band in 2004 and lost 50 lbs. He threw his back out in June causing severe nerve damage. Recently started higher dose of metformin and glipizide. He was experiencing severe hypo?s and inflammation/achiness. Dropped metformin in half and discontinued glipizide x1 wk ago. Planning to start Ozempic based on next labs. Labs: Per pt report: A1c: 8.5 Chol: 206 LDL: 117 HDL: 45 T Meds: metformin ER 2000mg qd ; glipizide XL 10 mg (d/c) Diet: per 24 hr recall: B: [employer] [facility]; 2 cheesy eggs w/ dimas L: skips; sandwich at home D: steak fajitas w/ tortilla Wt: 283lb Ht: 69in BMI: 41.8 DX: Altered nutrition related laboratory values related to impaired glucose metabolism, lack of previous exposure to nutrition information as evidenced by pt report, diagnosis of diabetes, previous diet high in refined carbohydrates. Intervention: 1. Completed intake assessment. Discussed barriers to care. 2. Discussed pathophysiology of diabetes. Reviewed A1c and its correlation to blood glucose numbers. Discussed recommended BG ranges. 3. Discussed importance of self-monitoring, how often, and when to check. 4. Reviewed hyper/hypoglycemia and treatment. 5. Reviewed safe disposal of equipment (strip/lancets/insulin needles). 6. Created SMART goals for pt self-care and success. 7. Discussed program curriculum outline and class needs based on individual goals. SMART Goals: 1. Pt goal to lose 30 lb in the next 3-6 mo with overall goal 210 lb through dietary changes, portion control, carb counting, and starting regular exercise. Monitor/Evaluate: Pt will attend full DSME program. Basic Nutrition class scheduled for December 26.
== END ==
PROVIDERS: PCP Internal Medicine; Referring Provider Internal Medicine; Visit Provider Internal Medicine
DX: E11.9 Type 2 diabetes mellitus without complications (principal)
CPT/HCPCS: G0108

== ENCOUNTER → 2020-12-26 09:56 | Outpatient (CLI) | payer BC, SELFPAY ==
--- NOTE | 2020-12-26 12:33 | DIET.PN ---
Diabetes: Healthy Eating 2 Intervention: Fats effects on glucose, weight, heart disease, cholesterol Sat Vs Unsat Protein- animal and plant based options Low, med, high fat meats Sugar substitutes Sodium Health claims Grocery shopping guidelines Eating away from home Alcohol Sick day guidelines Ketone Testing
== END ==
PROVIDERS: PCP Internal Medicine; Referring Provider Internal Medicine; Visit Provider Internal Medicine
DX: E11.9 Type 2 diabetes mellitus without complications (principal)
CPT/HCPCS: G0109

== ENCOUNTER → 2021-01-09 08:46 | Outpatient (CLI) | payer BC, SELFPAY ==
--- NOTE | 2021-01-09 09:02 | DI.CT.S_ITS ---
PROCEDURE: CT LUMBAR SPINE WO CON INDICATIONS: Spinal stenosis, lumbar region without neurogenic sciatica. TECHNIQUE: Noncontrast 3 mm thick sections acquired from the T12 level to the sacrum. Sagittal and coronal reformats were constructed. For radiation dose reduction, the following was used: automated exposure control. COMPARISON: [facility], MR, MR LUMBAR SPINE WO/W CON, 08/05/2020, 14:04. [facility], MR, MR LUMBAR SPINE WO CON, 07/21/2020, 17:50. FINDINGS: Image quality: Excellent. Bones: No acute vertebral body compression fractures. No suspicious lytic or blastic bony lesions. No pars defects. Minimal to mild S shaped scoliotic curvature can be seen. There is mild retrolisthesis seen at L3-L4 and L5-S1. T12-L1: There is mild loss of disc height. Moderate disc bulge is seen, which is eccentric to the right side. There is mild right-sided and no left-sided neural foraminal narrowing seen. No significant central canal narrowing is seen. L1-L2: No significant abnormality is seen. L2-L3: The disc height is well preserved. Moderate disc bulge is seen, which is eccentric to the right. [id number] right-sided and mild left-sided facet hypertrophy can be seen. There is mild right-sided and moderate left-sided neural foraminal narrowing seen. Moderate central canal narrowing is seen. L3-L4: There is at least moderate loss of disc height. Vacuum disc phenomenon is seen at this level. Moderate to prominent disc bulge is seen, with a central disc protrusion. Mild to moderate facet hypertrophy can be seen. There is moderate to severe bilateral neural foraminal narrowing seen, right worse than left. Moderate to severe central canal narrowing is also seen. L4-L5: Moderate loss of disc height is seen. At least moderate disc bulge is seen, which is eccentric to the right. Vacuum disc phenomenon is seen at this level. Moderate facet joint hypertrophy is seen, right worse than left. There is moderate to severe bilateral neural foraminal narrowing seen, right worse than left. Moderate central canal narrowing is seen. L5-S1: Moderate to severe loss of disc height is seen. Vacuum disc phenomenon is seen at this level. There is at least moderate disc bulge seen, which is eccentric to the left. Posteriorly projected endplate osteophytes are seen. Moderate to severe bilateral neural foraminal narrowing can be seen. Mild to moderate central canal narrowing is seen. Soft tissues: No retroperitoneal masses or hematomas. Visualized aorta is normal in caliber. Atherosclerotic calcification is noted. A lap band is partially seen. IMPRESSION: Lumbar spine degenerative changes are seen, which are most prominent inferiorly and are similar to the prior imaging. Dictated by: Kirk Healy M.D. on 01/09/2021 at 8:42 Approved by: Kirk Healy M.D. on 01/09/2021 at 8:46
== END ==
PROVIDERS: Referring Provider Student in an Organized Health Care Education/Training Program; Visit Provider Student in an Organized Health Care Education/Training Program
DX: M48.061 Spinal stenosis, lumbar region without neurogenic claudication (principal); M47.816 Spondylosis without myelopathy or radiculopathy, lumbar region
CPT/HCPCS: 72131

== ENCOUNTER → 2021-11-09 09:17 | Outpatient (CLI) | payer BC, SELFPAY ==
[2021-11-09 10:21] LABS: Alanine Aminotransferase 43 IU/L (<50); Albumin 4.3 g/dL (3.5-5.0); Albumin Globulin Ratio 1.5 (1.0-2.8); Alkaline Phosphatase 62 U/L (38-126); Aspartate Aminotransferase 29 IU/L (17-59); BUN Creatinine Ratio 22.9 (6-22); Bilirubin Total 0.7 mg/dL (0.2-1.3); Blood Urea Nitrogen 27 mg/dL (9-20); Calcium 9.8 mg/dL (8.4-10.2); Carbon Dioxide 27 mmol/L (22-32); Chloride 101 mmol/L (98-107); Estimated Glomerular Filt Rate > 60.0 mL/min (>60); Globulin 2.9 g/dL (1.7-4.1); Glucose 153 mg/dL (80-110); HEMOLYSIS < 15 (0-50); Potassium 4.9 mmol/L (3.4-5.1); Sodium 137 mmol/L (137-145); Total Protein 7.2 g/dL (6.3-8.2)
[2021-11-09 10:23] LABS: Free T4, Direct Thyroxine 1.58 ng/dL (0.78-2.19)
[2021-11-09 10:26] LABS: Hemoglobin A1C% w Est Avg Glu 7.2 % (4.0-6.0)
[2021-11-09 10:39] LABS: Thyroid Stimulating Hormone < 0.015 uIU/mL (0.47-4.68)
== END ==
PROVIDERS: Referring Provider Internal Medicine; Visit Provider Internal Medicine
DX: E11.9 Type 2 diabetes mellitus without complications (principal); Z68.41 Body mass index [BMI] 40.0-44.9, adult
CPT/HCPCS: 36415; 80053; 83036; 84439; 84443

== ENCOUNTER 2022-01-06 20:09 | Observation (INO) | payer BC, SELFPAY ==
[2022-01-06] VITALS (26 sets, daily range): BP systolic 125–165; BP diastolic 59–93; PULSE 76–122; RESP 16–26; TEMP 36.6; O2SAT 96–98; BMI 39.9
--- NOTE | 2022-01-06 20:20 | DI.RAD.S_ITS ---
PROCEDURE: XR CHEST 1V INDICATIONS: palpitations, chest pressure, jaw pain TECHNIQUE: One view of the chest was acquired. COMPARISON: None available. Previous 09/06/2020 study images not available for comparison. FINDINGS: Surgical changes and devices: Postsurgical changes are partially visualized within the lower cervical spine. Lungs and pleura: There is a lordotic projection limiting evaluation. Linear left retrocardiac opacities are demonstrated. No pleural effusions or pneumothorax. Mediastinum: Mediastinal contours appear normal. Heart size is normal. Bones and chest wall: No suspicious bony lesions. Overlying soft tissues appear unremarkable. IMPRESSION: 1. Linear left retrocardiac opacities consistent with atelectasis or developing consolidation. Dictated by: Rigo Decker M.D. on 01/06/2022 at 21:51 Approved by: Rigo Decker M.D. on 01/06/2022 at 21:53
--- NOTE | 2022-01-06 20:34 | ED.CHESTPAIN ---
HPI - Chest Pain General Chief Complaint: Chest Pain Stated Complaint: Heart issues Time Seen by Provider: 01/06/22 20:19 History of Present Illness HPI narrative: 61-year-old male nonsmoker with history of hypertension, diabetes and back problems presents with his in the chief complaint of rapid heart rate, occasional chest pressure and some headache that is been present off and on for about 1 week. They have checked his heart rate at home with a monitor that is suggested atrial fibrillation over that time. He has no history of AFib. He has had no fever chills. He denies any current chest pain or shortness of breath. He denies any cough. He denies any new medications. He has relatively recently started the noom diet. He denies abdominal pain, nausea or vomiting. He denies any dysuria, frequency or urgency Related Data Home Medications Medication Instructions Recorded Confirmed aspirin 81 mg tablet,delayed 81 mg PO QDAY #0 07/02/16 06/05/20 release citalopram 10 mg tablet 10 mg PO QDAY #0 07/02/16 06/05/20 telmisartan 40 1 tab PO QDAY #0 07/02/16 06/05/20 mg-hydrochlorothiazide 12.5 mg tablet (Micardis HCT) vitamin B complex (B 1 tab PO QDAY #0 07/02/16 06/05/20 Complex-Vitamin B12) bupropion HCl 300 mg 24 hr tablet, 300 mg PO QAM 08/31/19 06/05/20 extended release Previous Rx's Medication Instructions Recorded cyclobenzaprine 10 mg tablet 10 mg PO BID #20 tab 06/05/20 cyclobenzaprine 10 mg tablet 10 mg PO TID PRN #10 tab 07/14/20 hydrocodone 5 mg-acetaminophen 325 1 tab PO Q4-6H PRN #10 tab 07/14/20 mg tablet ([place]) lidocaine 5 % topical patch 1 patch TOPICAL DAILY PRN #15 ea 07/14/20 prednisone 20 mg tablet 40 mg PO DAILY #8 tab 07/14/20 diazepam 5 mg tablet (Valium) 5 mg PO Q12HR PRN #10 tab 08/05/20 ketorolac 10 mg tablet 10 mg PO Q6H PRN #14 tab 08/07/20 prednisone 10 mg tablet See Rx Instructions .ROUTE 08/07/20 .COMPLEX #30 tab albuterol sulfate 90 mcg/actuation 2 puff INHALATION Q4-6H PRN #8.5 10/05/20 aerosol inhaler gram Allergies Allergy/AdvReac Type Severity Reaction Status Date / Time tamsulosin [From Flomax] Allergy Chest Pain Verified 01/06/22 20:26 Review of Systems Review of Systems Narrative: GENERAL: Denies chills, fatigue, malaise, fever, sweats. HEENT: Denies sinus pain, ear pain, sore throat, difficulty swallowing, dizziness. RESPIRATORY: See HPI CARDIOVASCULAR: See HPI GASTROINTESTINAL: Denies nausea, vomiting, abdominal pain, diarrhea, constipation, melena. : Denies dysuria, frequency, incontinence, hematuria, urinary retention. MUSCULOSKELETAL: denies weakness, joint pain, or bony pain SKIN: Denies rash, skin lesions, or other NEUROLOGIC: Denies weakness, headache, numbness, change in speech, confusion, seizures, incoordination. PSYCHIATRIC: No concerning psychosocial issues. 12 point review of systems is negative except for those stated above Patient History Medical History Low back strain Social History Smoking Status: Never smoker eating out: 1-3 times/week Type(s) of exercise: walking Smoking Status: Never smoker alcohol intake frequency: holidays/special occasions only Substance Use Type: marijuana Exam Narrative Exam Narrative: GENERAL: 61] year old patient appears stated age. Well-developed patient, in mild distress. HEAD: Atraumatic. Normocephalic. EYES: Pupils equal round and reactive. Extraocular motions intact. No scleral icterus. No injection or drainage. ENT: Nose without bleeding, purulent drainage. Throat without erythema, tonsillar hypertrophy or exudate. Airway patent. NECK: Trachea midline. Non tender CARDIOVASCULAR: Tachycardic and irregular without murmurs, gallops, or rubs. RESPIRATORY: Clear to auscultation. Breath sounds equal bilaterally. No wheezes, rales, or rhonchi. GASTROINTESTINAL: Abdomen soft, non-tender, nondistended. EXTREMITIES: No edema or joint tenderness. BACK: Nontender without deformity or crepitance. No flank tenderness. NEURO: AOx3. SKIN: No rash or erythema of visible areas Initial Vital Signs Initial Vital Signs: Vital Signs Temperature 98 F 01/06/22 20:22 Pulse Rate 108 H 01/06/22 20:22 Respiratory Rate 26 H 01/06/22 20:22 Blood Pressure 138/90 01/06/22 20:22 Pulse Oximetry 98 01/06/22 20:22 Course Orders Ordered: ED Orders 01/06/22 20:20 XR chest 1V Stat COVID19 -Nasal RAPID/Pre-Proc Stat Complete Blood Count AUTO DIFF Stat Comprehensive Metabolic Panel Stat D Dimer Stat Free T4, Direct Thyroxine Stat Magnesium Stat NT-proBNP (BNP-Adult 18+) Stat Partial Thromboplastin Time Stat Prothrombin Time INR Stat TSH w/ Reflex to FT4 Stat Troponin & CK Cardiac Panel Stat 01/06/22 20:21 EKG-12 Lead Stat DILTIAZEM (Diltiazem 125 Mg/125 Ml-D5w) 125 mg in 125 mls @ 5 mls/hr IV TITRATE REI; Protocol Last Admin: 01/06/22 21:15 Dose: 5 mg/hr, 5 mls/hr Documented by: DIOMEDES Discontinued Medications Apixaban (Apixaban 5 Mg Tablet) 5 mg PO NOW ONE Stop: 01/06/22 20:32 Last Admin: 01/06/22 20:45 Dose: 5 mg Documented by: HOWARD Diltiazem HCl (Diltiazem 5 Mg/Ml Sdv) 20 mg IV NOW ONE Stop: 01/06/22 20:32 Last Admin: 01/06/22 20:46 Dose: 20 mg Documented by: HOWARD Sodium Chloride (Normal Saline 0.9%) 1,000 mls @ 1,000 mls/hr IV BOLUS ONE Stop: 01/06/22 21:18 Last Infusion: 01/06/22 22:04 Dose: 0 mls/hr Documented by: Admin: 01/06/22 20:48 Dose: 1,000 mls/hr Documented by: HOWARD Vital Signs Vital signs: Vital Signs - 8 hr 01/06/22 20:22 01/06/22 20:46 01/06/22 20:49 Temperature 98 F Pulse Rate 108 H 113 H 119 H Respiratory Rate 26 H 16 Blood Pressure 138/90 137/90 137/90 Pulse Oximetry 98 98 01/06/22 21:14 01/06/22 21:20 01/06/22 21:30 Temperature Pulse Rate 76 84 85 Respiratory Rate 21 20 21 Blood Pressure Pulse Oximetry 97 96 96 01/06/22 21:31 01/06/22 21:40 01/06/22 21:46 Temperature Pulse Rate 92 H 96 H 87 Respiratory Rate 20 20 20 Blood Pressure 148/66 H 144/79 H Pulse Oximetry 96 96 97 01/06/22 21:50 01/06/22 22:00 01/06/22 22:10 Temperature Pulse Rate 93 H 85 90 Respiratory Rate 26 H 21 17 Blood Pressure 130/67 Pulse Oximetry 98 97 96 01/06/22 22:16 01/06/22 22:20 01/06/22 22:30 Temperature Pulse Rate 89 88 88 Respiratory Rate 21 22 23 Blood Pressure 164/72 H Pulse Oximetry 96 97 96 01/06/22 22:31 Temperature Pulse Rate 91 H Respiratory Rate 21 Blood Pressure 165/71 H Pulse Oximetry 97 MDM - Chest Pain Lab Data Result diagrams: 01/06/22 20:20 01/06/22 20:20 Labs: Lab Results 01/06/22 01/06/22 01/06/22 Range/Units 20:20 20:20 20:20 WBC 6.8 (4.5-11.0) X10^3/uL RBC 4.51 (4.5-5.9) X10^6/uL Hgb 13.1 L (13.5-17.5) g/dL Hct 38.3 L (41-53) % MCV 84.9 (80-100) fL MCH 29.2 (26-34) PG MCHC 34.3 (30-36) % RDW 13.4 (11.6-14.8) % Plt Count 203 (150-400) X10^3/uL Neut % (Auto) 55.3 (50-75) % Lymph % (Auto) 33.6 (25-40) % [place] % (Auto) 7.9 (3-14) % Eos % (Auto) 2.6 (2-4) % Baso % (Auto) 0.6 (0-2) % Neut # (Auto) 3800 (1765-3229) /uL Lymph # (Auto) 2300 (9200-4725) /uL [place] # (Auto) 500 (0-900) /uL Eos # (Auto) 200 (0-450) /uL Baso # (Auto) 0 (0-100) /uL PT (10.1-12.7) SECONDS INR (0.9-1.3) APTT (26.4-36.2) SECONDS D-Dimer < 200 (<230) ng/mL Sodium 139 (137-145) mmol/L Potassium 4.2 (3.4-5.1) mmol/L Chloride 104 (98-107) mmol/L Carbon Dioxide 31 (22-32) mmol/L BUN 23 H (9-20) mg/dL Creatinine 1.08 (0.66-1.25) mg/dL Estimated GFR > 60 (>60) mL/min BUN/Creatinine Ratio 21.3 (6-22) Glucose 128 H (80-110) mg/dL Calcium 9.5 (8.4-10.2) mg/dL Magnesium 1.8 (1.6-2.3) mg/dL Total Bilirubin 0.6 (0.2-1.3) mg/dL AST 35 (17-59) IU/L ALT 46 (<50) IU/L Alkaline Phosphatase 58 (38-126) U/L Total Creatine Kinase (55-170) U/L CK-MB (CK-2) (<2.37) ng/mL CK-MB (CK-2) Rel Index (1.5-5.0) % Troponin I (0.01-0.034) ng/mL NT-Pro-B Natriuret Pep 374 H (<125) pg/mL Total Protein 7.3 (6.3-8.2) g/dL Albumin 4.4 (3.5-5.0) g/dL Globulin 2.9 (1.7-4.1) g/dL Albumin/Globulin Ratio 1.5 (1.0-2.8) TSH (0.47-4.68) uIU/mL Free T4 (0.78-2.19) ng/dL SARS-CoV-2 (PCR) (Negative) 01/06/22 01/06/22 01/06/22 Range/Units 20:20 20:20 20:20 WBC (4.5-11.0) X10^3/uL RBC (4.5-5.9) X10^6/uL Hgb (13.5-17.5) g/dL Hct (41-53) % MCV (80-100) fL MCH (26-34) PG MCHC (30-36) % RDW (11.6-14.8) % Plt Count (150-400) X10^3/uL Neut % (Auto) (50-75) % Lymph % (Auto) (25-40) % [place] % (Auto) (3-14) % Eos % (Auto) (2-4) % Baso % (Auto) (0-2) % Neut # (Auto) (7143-6013) /uL Lymph # (Auto) (8465-5512) /uL [place] # (Auto) (0-900) /uL Eos # (Auto) (0-450) /uL Baso # (Auto) (0-100) /uL PT 11.4 (10.1-12.7) SECONDS INR 1.0 (0.9-1.3) APTT 33 (26.4-36.2) SECONDS D-Dimer (<230) ng/mL Sodium (137-145) mmol/L Potassium (3.4-5.1) mmol/L Chloride (98-107) mmol/L Carbon Dioxide (22-32) mmol/L BUN (9-20) mg/dL Creatinine (0.66-1.25) mg/dL Estimated GFR (>60) mL/min BUN/Creatinine Ratio (6-22) Glucose (80-110) mg/dL Calcium (8.4-10.2) mg/dL Magnesium (1.6-2.3) mg/dL Total Bilirubin (0.2-1.3) mg/dL AST (17-59) IU/L ALT (<50) IU/L Alkaline Phosphatase (38-126) U/L Total Creatine Kinase 105 (55-170) U/L CK-MB (CK-2) 1.90 (<2.37) ng/mL CK-MB (CK-2) Rel Index 1.8 (1.5-5.0) % Troponin I 0.028 (0.01-0.034) ng/mL NT-Pro-B Natriuret Pep (<125) pg/mL Total Protein (6.3-8.2) g/dL Albumin (3.5-5.0) g/dL Globulin (1.7-4.1) g/dL Albumin/Globulin Ratio (1.0-2.8) TSH < 0.02 L (0.47-4.68) uIU/mL Free T4 2.53 H (0.78-2.19) ng/dL SARS-CoV-2 (PCR) (Negative) 01/06/22 Range/Units 20:20 WBC (4.5-11.0) X10^3/uL RBC (4.5-5.9) X10^6/uL Hgb (13.5-17.5) g/dL Hct (41-53) % MCV (80-100) fL MCH (26-34) PG MCHC (30-36) % RDW (11.6-14.8) % Plt Count (150-400) X10^3/uL Neut % (Auto) (50-75) % Lymph % (Auto) (25-40) % [place] % (Auto) (3-14) % Eos % (Auto) (2-4) % Baso % (Auto) (0-2) % Neut # (Auto) (9816-3288) /uL Lymph # (Auto) (0714-4404) /uL [place] # (Auto) (0-900) /uL Eos # (Auto) (0-450) /uL Baso # (Auto) (0-100) /uL PT (10.1-12.7) SECONDS INR (0.9-1.3) APTT (26.4-36.2) SECONDS D-Dimer (<230) ng/mL Sodium (137-145) mmol/L Potassium (3.4-5.1) mmol/L Chloride (98-107) mmol/L Carbon Dioxide (22-32) mmol/L BUN (9-20) mg/dL Creatinine (0.66-1.25) mg/dL Estimated GFR (>60) mL/min BUN/Creatinine Ratio (6-22) Glucose (80-110) mg/dL Calcium (8.4-10.2) mg/dL Magnesium (1.6-2.3) mg/dL Total Bilirubin (0.2-1.3) mg/dL AST (17-59) IU/L ALT (<50) IU/L Alkaline Phosphatase (38-126) U/L Total Creatine Kinase (55-170) U/L CK-MB (CK-2) (<2.37) ng/mL CK-MB (CK-2) Rel Index (1.5-5.0) % Troponin I (0.01-0.034) ng/mL NT-Pro-B Natriuret Pep (<125) pg/mL Total Protein (6.3-8.2) g/dL Albumin (3.5-5.0) g/dL Globulin (1.7-4.1) g/dL Albumin/Globulin Ratio (1.0-2.8) TSH (0.47-4.68) uIU/mL Free T4 (0.78-2.19) ng/dL SARS-CoV-2 (PCR) Negative (Negative) ECG Data Interpretation: Rapid atrial fibrillation with rate of 122, no ischemic change such as ST elevation or depression, no T-wave inversions or other evidence of ischemia MDM Narrative Medical decision making narrative: Patient has been in AFib for upwards of 1 week, he is in no extremis and not a candidate for electrocardioversion. Patient will be admitted to the hospital for rate control, day she thompson of anticoagulation and further workup which may include echocardiogram or other, to be determined by hospitalist service. Discharge Plan Departure Patient Disposition: Admitted As Inpatient Clinical Impression: Atrial fibrillation with rapid ventricular response Admit Date/Time: 01/06/22 22:49 Admit Provider: Homa Fregoso
[2022-01-06 20:43] LABS: Add Manual Diff / Slide Review NO; Basophils Absolute Auto 0 /uL (0-100); Basophils Percent Auto 0.6 % (0-2); Eosinophils Absolute Auto 200 /uL (0-450); Eosinophils Percent Auto 2.6 % (2-4); Hematocrit 38.3 % (41-53); Hemoglobin 13.1 g/dL (13.5-17.5); Lymphocytes Absolute Auto 2300 /uL (1100-4500); Lymphocytes Percent Auto 33.6 % (25-40); Mean Corpuscular HGB Conc 34.3 % (30-36); Mean Corpuscular Hemoglobin 29.2 PG (26-34); Mean Corpuscular Volume 84.9 fL (80-100); Monocytes Absolute Auto 500 /uL (0-900); Monocytes Percent Auto 7.9 % (3-14); Neutrophils Absolute Auto 3800 /uL (1500-7000); Neutrophils Percent Auto 55.3 % (50-75); Platelet Count 203 X10^3/uL (150-400); Red Blood Cell Count 4.51 X10^6/uL (4.5-5.9); Red Cell Distribution Width 13.4 % (11.6-14.8); White Blood Cell Count 6.8 X10^3/uL (4.5-11.0)
[2022-01-06] MEDS: APIXABAN 5 MG TABLET PO (20:45)
[2022-01-06] MEDS: dilTIAZem 5 MG/ML SDV 20 MG IV (20:46)
[2022-01-06] MEDS: SODIUM CHLORIDE 0.9% 1,000 ML 1000 ML IV (20:48)
[2022-01-06 20:51] LABS: Prothrombin Time 11.4 SECONDS (10.1-12.7)
[2022-01-06 20:52] LABS: D Dimer < 200 ng/mL (<230); PTT Partial Thromboplastin Tim 33 SECONDS (26.4-36.2)
[2022-01-06 20:53] LABS: Alanine Aminotransferase 46 IU/L (<50); Albumin 4.4 g/dL (3.5-5.0); Albumin Globulin Ratio 1.5 (1.0-2.8); Alkaline Phosphatase 58 U/L (38-126); Aspartate Aminotransferase 35 IU/L (17-59); BUN Creatinine Ratio 21.3 (6-22); Bilirubin Total 0.6 mg/dL (0.2-1.3); Blood Urea Nitrogen 23 mg/dL (9-20); Calcium 9.5 mg/dL (8.4-10.2); Carbon Dioxide 31 mmol/L (22-32); Chloride 104 mmol/L (98-107); Creatine Kinase 105 U/L (55-170); Estimated Glomerular Filt Rate > 60 mL/min (>60); Globulin 2.9 g/dL (1.7-4.1); Glucose 128 mg/dL (80-110); HEMOLYSIS < 15 (0-50); Magnesium 1.8 mg/dL (1.6-2.3); Potassium 4.2 mmol/L (3.4-5.1); Sodium 139 mmol/L (137-145); Total Protein 7.3 g/dL (6.3-8.2)
[2022-01-06 21:01] LABS: NT-proBNP (BNP-Adult 18+) 374 pg/mL (<125)
[2022-01-06 21:04] LABS: Troponin I 0.028 ng/mL (0.01-0.034)
[2022-01-06 21:05] LABS: COVID19 -Nasal RAPID Negative (Negative)
[2022-01-06 21:08] LABS: CKMB % Relative Index 1.8 % (1.5-5.0)
[2022-01-06] MEDS: DILTIAZEM 125 MG/125 ML PIGGYBACK IV (21:15)
[2022-01-06 21:40] LABS: TSH w/ Reflex to FT4 < 0.02 uIU/mL (0.47-4.68)
[2022-01-06 22:17] LABS: Free T4, Direct Thyroxine 2.53 ng/dL (0.78-2.19)
[2022-01-07] VITALS (19 sets, daily range): BP systolic 84–147; BP diastolic 50–76; PULSE 51–104; RESP 20–31; TEMP 36.4–37.2; O2SAT 92–98
--- NOTE | 2022-01-07 00:09 | PM.CN.EICU ---
History of Present Illness Consult details Chief complaint: Heart issues Narrative: Patient is a 61 year old male with history of HTN and DM presents to the ER with rapid heart rate and jaw pain which started about a week ago. Denies chest pain, N/V, fever/chills, or recent sick contact. In ER, he was found to be in A fib w/ RVR and started on dilatixem infusion 10 mg/hr and eliquis. Record Retrieval Specialist consulted for A fib managment. Labs notable for low TSH and high FT4 suggestive of hyperthyroidism. Family history significant for daughter with Grave's disease and mother with atrial fibrillation. [facility] Medical History Low back strain Social History Smoking Status: Never smoker eating out: 1-3 times/week Type(s) of exercise: walking Current Medications Current Medications Medications: Home Medications aspirin 81 mg tablet,delayed release 81 mg PO QDAY #0 07/02/16 [History Confirmed 06/05/20] citalopram 10 mg tablet 10 mg PO QDAY #0 07/02/16 [History Confirmed 06/05/20] telmisartan 40 mg-hydrochlorothiazide 12.5 mg tablet (Micardis HCT) 1 tab PO QDAY #0 07/02/16 [History Confirmed 06/05/20] vitamin B complex (B Complex-Vitamin B12) 1 tab PO QDAY #0 07/02/16 [History Confirmed 06/05/20] bupropion HCl 300 mg 24 hr tablet, extended release 300 mg PO QAM 08/31/19 [History Confirmed 06/05/20] cyclobenzaprine 10 mg tablet 10 mg PO BID #20 tab 06/05/20 [Rx Confirmed 06/05/20] cyclobenzaprine 10 mg tablet 10 mg PO TID PRN #10 tab 07/14/20 [Rx] hydrocodone 5 mg-acetaminophen 325 mg tablet ([place]) 1 tab PO Q4-6H PRN #10 tab 07/14/20 [Rx] lidocaine 5 % topical patch 1 patch TOPICAL DAILY PRN #15 ea 07/14/20 [Rx] prednisone 20 mg tablet 40 mg PO DAILY #8 tab 07/14/20 [Rx] diazepam 5 mg tablet (Valium) 5 mg PO Q12HR PRN #10 tab 08/05/20 [Rx] ketorolac 10 mg tablet 10 mg PO Q6H PRN #14 tab 08/07/20 [Rx] prednisone 10 mg tablet See Rx Instructions .ROUTE .COMPLEX #30 tab 08/07/20 [Rx] albuterol sulfate 90 mcg/actuation aerosol inhaler 2 puff INHALATION Q4-6H PRN #8.5 gram 10/05/20 [Rx Confirmed 10/05/20] Visit Medications (administered) Generic Name Dose Route Start Last Admin Trade Name Freq PRN Reason Stop Dose Admin DILTIAZEM 125 mg in 125 mls @ 5 mls/hr 01/06/22 20:45 01/06/22 23:55 Diltiazem 125 Mg/125 Ml-D5w IV 10 mg/hr TITRATE REI 10 mls/hr Titration Protocol 5 MG/HR Exam Vital Signs (past 8 hours): - 01/06/22 20:15 01/06/22 20:22 01/06/22 20:30 Temperature 98 F Pulse Rate 108 H 122 H Respiratory Rate 26 H Blood Pressure 138/90 138/90 141/93 H Pulse Oximetry 98 97 01/06/22 20:45 01/06/22 20:46 01/06/22 20:49 Temperature Pulse Rate 118 H 113 H 119 H Respiratory Rate 16 Blood Pressure 137/90 137/90 137/90 Pulse Oximetry 97 98 01/06/22 21:14 01/06/22 21:20 01/06/22 21:30 Temperature Pulse Rate 76 84 85 Respiratory Rate 21 20 21 Blood Pressure Pulse Oximetry 97 96 96 01/06/22 21:31 01/06/22 21:40 01/06/22 21:46 Temperature Pulse Rate 92 H 96 H 87 Respiratory Rate 20 20 20 Blood Pressure 148/66 H 144/79 H Pulse Oximetry 96 96 97 01/06/22 21:50 01/06/22 22:00 01/06/22 22:10 Temperature Pulse Rate 93 H 85 90 Respiratory Rate 26 H 21 17 Blood Pressure 130/67 Pulse Oximetry 98 97 96 01/06/22 22:16 01/06/22 22:20 01/06/22 22:30 Temperature Pulse Rate 89 88 88 Respiratory Rate 21 22 23 Blood Pressure 164/72 H Pulse Oximetry 96 97 96 01/06/22 22:31 01/06/22 22:40 01/06/22 22:45 Temperature Pulse Rate 91 H 103 H 97 H Respiratory Rate 21 Blood Pressure 165/71 H 125/59 L Pulse Oximetry 97 97 97 01/06/22 22:50 01/06/22 23:00 01/06/22 23:13 Temperature Pulse Rate 89 87 95 H Respiratory Rate 21 23 Blood Pressure Pulse Oximetry 97 98 98 01/06/22 23:14 Temperature Pulse Rate 96 H Respiratory Rate Blood Pressure 132/88 Pulse Oximetry 98 Oxygen Delivery Method Room Air Objective Labs Result Diagrams: 01/06/22 20:20 01/06/22 20:20 Labs: Laboratory Results - last 24 hr 01/06/22 01/06/22 01/06/22 20:20 20:20 20:20 WBC 6.8 RBC 4.51 Hgb 13.1 L Hct 38.3 L MCV 84.9 MCH 29.2 MCHC 34.3 RDW 13.4 Plt Count 203 Neut % (Auto) 55.3 Lymph % (Auto) 33.6 [place] % (Auto) 7.9 Eos % (Auto) 2.6 Baso % (Auto) 0.6 Neut # (Auto) 3800 Lymph # (Auto) 2300 [place] # (Auto) 500 Eos # (Auto) 200 Baso # (Auto) 0 PT INR APTT D-Dimer < 200 Sodium 139 Potassium 4.2 Chloride 104 Carbon Dioxide 31 BUN 23 H Creatinine 1.08 Estimated GFR > 60 BUN/Creatinine Ratio 21.3 Glucose 128 H Calcium 9.5 Magnesium 1.8 Total Bilirubin 0.6 AST 35 ALT 46 Alkaline Phosphatase 58 Total Creatine Kinase CK-MB (CK-2) CK-MB (CK-2) Rel Index Troponin I NT-Pro-B Natriuret Pep 374 H Total Protein 7.3 Albumin 4.4 Globulin 2.9 Albumin/Globulin Ratio 1.5 TSH Free T4 SARS-CoV-2 (PCR) 01/06/22 01/06/22 01/06/22 20:20 20:20 20:20 WBC RBC Hgb Hct MCV MCH MCHC RDW Plt Count Neut % (Auto) Lymph % (Auto) [place] % (Auto) Eos % (Auto) Baso % (Auto) Neut # (Auto) Lymph # (Auto) [place] # (Auto) Eos # (Auto) Baso # (Auto) PT 11.4 INR 1.0 APTT 33 D-Dimer Sodium Potassium Chloride Carbon Dioxide BUN Creatinine Estimated GFR BUN/Creatinine Ratio Glucose Calcium Magnesium Total Bilirubin AST ALT Alkaline Phosphatase Total Creatine Kinase 105 CK-MB (CK-2) 1.90 CK-MB (CK-2) Rel Index 1.8 Troponin I 0.028 NT-Pro-B Natriuret Pep Total Protein Albumin Globulin Albumin/Globulin Ratio TSH < 0.02 L Free T4 2.53 H SARS-CoV-2 (PCR) 01/06/22 20:20 WBC RBC Hgb Hct MCV MCH MCHC RDW Plt Count Neut % (Auto) Lymph % (Auto) [place] % (Auto) Eos % (Auto) Baso % (Auto) Neut # (Auto) Lymph # (Auto) [place] # (Auto) Eos # (Auto) Baso # (Auto) PT INR APTT D-Dimer Sodium Potassium Chloride Carbon Dioxide BUN Creatinine Estimated GFR BUN/Creatinine Ratio Glucose Calcium Magnesium Total Bilirubin AST ALT Alkaline Phosphatase Total Creatine Kinase CK-MB (CK-2) CK-MB (CK-2) Rel Index Troponin I NT-Pro-B Natriuret Pep Total Protein Albumin Globulin Albumin/Globulin Ratio TSH Free T4 SARS-CoV-2 (PCR) Negative Assessment & Plan Assessment & Plan narrative: NEURO: -- Seek PT/OT and OOB as tolerated RESP: -- On room air -- Not in acute distress -- Encourage Is and OOB as tolerated CVS: # A fib w/ RVR -- Secondary to ?hyperthyroidism vs chronic left atrial dilation -- Check TTE -- CHADVASC score 2 -> start eliquis -- High lytes goal -- Start metoprolol 25 mg BID -- Titrate diltizem infusion to maintain HR goal < 110 ENDO: # Abnormal TFTs -- Concern for hyperthryoidism vs toxic nodular -- Check thyroid US -- Recommend sending TSHr ab D/w Homa Fregoso and RN at bedside. Time Spent With Patient Critical Care time: I spent a total of [] minutes of critical care time on this patient's care today; this time is exclusive of procedural time.
--- NOTE | 2022-01-07 00:34 | P.HP_ITS ---
History of Present Illness History of Present Illness Date Patient Seen: 01/07/22 Time Patient Seen: 00:34 Chief complaint: Rapid heart rate found to be in A-fib w/RVR Narrative: Tristan Novak is a 61-year-old type 2 diabetic with hypertension was driving back home from [place] when he turned on [address] which is approximately 15 miles from in a [place] started to developed jaw pain on both sides of his mouth. It eventually led to headache. When he arrived home he launched his iPhone jarvis and found that his heart rate was quite fast and that it was reading that he was in atrial fibrillation. That time he stated he had a heart rate of 118. He is normally bradycardic he states his heart rate normally goes between 45 and 55 beats per minute. A jaw pain eventually went away. He feels like he can not walk any long distance on as he is had recent neck surgery and is due for lumbar surgery. He states that he feels like he has thrush in his throat and is cu rrently very anxious. He denies shortness of breath although he does seem to have exercise intolerance, he has anterior neck pain likely incisional, denied nausea or vomiting, dysuria, diarrhea or constipation. He does have peripheral neuropathy in the right leg he states this from herniated disc in his back. He does have continued difficulties with neck pain and occasional swallowing issues associated with the ACDF surgery he had 7 months ago. He states that he lost his voice for about 3 months and recently regained his ability to speak. 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 Chest x-ray did done in the emergency department only indicated a linear left retrocardiac opacity consistent with atelectasis or developing consolidation. Patient is afebrile, blood pressure 147/63, heart rate 93, respiratory rate 26, oxygen saturation of 95% on room air he weighs 124 kg with a BMI of 39.9. He has mildly anemic with hemoglobin and hematocrit of 13.1 and 30.3 respectively, D-dimer was negative, glucose 128 with a hemoglobin A1c of 6.5, proBNP P is 374, ST HS is less than 0.02 with a free T4 of 2.53. TSH receptor antibody is pending, and COVID-19 PCR was negative. Patient History Medical History (Updated 01/07/22 @ 02:10 by JOAN Turpin) Atrial fibrillation with rapid ventricular response Diabetes type 2, controlled Hyperthyroidism determined by thyroid function test Low back strain Surgical History (Updated 01/07/22 @ 02:10 by JOAN Turpin) S/P cervical spinal fusion Family & Social History Family History (Updated 01/07/22 @ 02:12 by JOAN Turpin) Daughter Graves disease Mother Atrial fibrillation, chronic Father Cardiac arrest Rheumatic fever Social History: household members spouse Prior Living Arrangements House Safety & Behavioral: Feels Safe in Current Yes Environment Been Physically Hurt or No Threatened By a Person Tobacco & Substance use: Smoking Status Never smoker alcohol intake frequency holiday/special occasion Substance Use Type marijuana Meds Home Medications and Allergies Home Medications Medication Instructions Recorded Confirmed Type aspirin 81 mg tablet,delayed 81 mg PO QDAY #0 07/02/16 06/05/20 History release citalopram 10 mg tablet 10 mg PO QDAY #0 07/02/16 06/05/20 History telmisartan 40 1 tab PO QDAY #0 07/02/16 06/05/20 History mg-hydrochlorothiazide 12.5 mg tablet (Micardis HCT) vitamin B complex (B 1 tab PO QDAY #0 07/02/16 06/05/20 History Complex-Vitamin B12) bupropion HCl 300 mg 24 hr tablet, 300 mg PO QAM 08/31/19 06/05/20 History extended release cyclobenzaprine 10 mg tablet 10 mg PO BID #20 tab 06/05/20 06/05/20 Rx cyclobenzaprine 10 mg tablet 10 mg PO TID PRN #10 tab 07/14/20 Rx hydrocodone 5 mg-acetaminophen 325 1 tab PO Q4-6H PRN #10 tab 07/14/20 Rx mg tablet ([place]) lidocaine 5 % topical patch 1 patch TOPICAL DAILY PRN #15 ea 07/14/20 Rx prednisone 20 mg tablet 40 mg PO DAILY #8 tab 07/14/20 Rx diazepam 5 mg tablet (Valium) 5 mg PO Q12HR PRN #10 tab 08/05/20 Rx ketorolac 10 mg tablet 10 mg PO Q6H PRN #14 tab 08/07/20 Rx prednisone 10 mg tablet See Rx Instructions .ROUTE 08/07/20 Rx .COMPLEX #30 tab albuterol sulfate 90 mcg/actuation 2 puff INHALATION Q4-6H PRN #8.5 10/05/20 10/05/20 Rx aerosol inhaler gram Allergies Allergy/AdvReac Type Severity Reaction Status Date / Time tamsulosin [From Flomax] Allergy Chest Pain Verified 01/06/22 20:26 Review of Systems Review of Systems ROS: Yes All systems reviewed with the patient and are negative except as otherwise documented Exam Vital Signs (past 8 hours): - 01/06/22 20:15 01/06/22 20:22 01/06/22 20:30 Temperature 98 F Pulse Rate 108 H 122 H Respiratory Rate 26 H Blood Pressure 138/90 138/90 141/93 H Pulse Oximetry 98 97 01/06/22 20:45 01/06/22 20:46 01/06/22 20:49 Temperature Pulse Rate 118 H 113 H 119 H Respiratory Rate 16 Blood Pressure 137/90 137/90 137/90 Pulse Oximetry 97 98 01/06/22 21:14 01/06/22 21:20 01/06/22 21:30 Temperature Pulse Rate 76 84 85 Respiratory Rate 21 20 21 Blood Pressure Pulse Oximetry 97 96 96 01/06/22 21:31 01/06/22 21:40 01/06/22 21:46 Temperature Pulse Rate 92 H 96 H 87 Respiratory Rate 20 20 20 Blood Pressure 148/66 H 144/79 H Pulse Oximetry 96 96 97 01/06/22 21:50 01/06/22 22:00 01/06/22 22:10 Temperature Pulse Rate 93 H 85 90 Respiratory Rate 26 H 21 17 Blood Pressure 130/67 Pulse Oximetry 98 97 96 01/06/22 22:16 01/06/22 22:20 01/06/22 22:30 Temperature Pulse Rate 89 88 88 Respiratory Rate 21 22 23 Blood Pressure 164/72 H Pulse Oximetry 96 97 96 01/06/22 22:31 01/06/22 22:40 01/06/22 22:45 Temperature Pulse Rate 91 H 103 H 97 H Respiratory Rate 21 Blood Pressure 165/71 H 125/59 L Pulse Oximetry 97 97 97 01/06/22 22:50 01/06/22 23:00 01/06/22 23:13 Temperature Pulse Rate 89 87 95 H Respiratory Rate 21 23 Blood Pressure Pulse Oximetry 97 98 98 01/06/22 23:14 01/06/22 23:35 01/07/22 00:00 Temperature 97.8 F Pulse Rate 96 H 97 H 96 H Respiratory Rate 24 27 H Blood Pressure 132/88 132/88 84/59 L Pulse Oximetry 98 96 96 01/07/22 00:02 01/07/22 00:23 Temperature Pulse Rate 98 H 101 H Respiratory Rate 30 H 25 H Blood Pressure 144/76 H Pulse Oximetry 95 97 Oxygen Delivery Method Room Air Narrative Exam Narrative: Gen: Alert, oriented, obese 61 y.o. male, NAD HEENT: normocephalic, atraumatic, conjunctiva clear, sclera non-icteric, oral mucosa pink and moist Neck: supple, full ROM, no JVD, trachea is midline Resp: Lungs CTA, non-labored breathing CV: tachy and irregular, no murmur or rubs Abd: soft, non-tender, normoactive BTs Skin: facial flushingno lesions or rashes, dry and intact Neuro: Alert and oriented X 4 w/no focal deficits. Speech clear and coherent. Extremities: moves all 4 extremities, is ambulatory, negative Monisha?s sign Psyche: normal mood and affect. Objective Labs Result Diagrams: 01/06/22 20:20 01/06/22 20:20 Labs: Laboratory Results - last 24 hr 01/06/22 01/06/22 01/06/22 20:20 20:20 20:20 WBC 6.8 RBC 4.51 Hgb 13.1 L Hct 38.3 L MCV 84.9 MCH 29.2 MCHC 34.3 RDW 13.4 Plt Count 203 Neut % (Auto) 55.3 Lymph % (Auto) 33.6 [place] % (Auto) 7.9 Eos % (Auto) 2.6 Baso % (Auto) 0.6 Neut # (Auto) 3800 Lymph # (Auto) 2300 [place] # (Auto) 500 Eos # (Auto) 200 Baso # (Auto) 0 PT INR APTT D-Dimer < 200 Sodium 139 Potassium 4.2 Chloride 104 Carbon Dioxide 31 BUN 23 H Creatinine 1.08 Estimated GFR > 60 BUN/Creatinine Ratio 21.3 Glucose 128 H Calcium 9.5 Magnesium 1.8 Total Bilirubin 0.6 AST 35 ALT 46 Alkaline Phosphatase 58 Total Creatine Kinase CK-MB (CK-2) CK-MB (CK-2) Rel Index Troponin I NT-Pro-B Natriuret Pep 374 H Total Protein 7.3 Albumin 4.4 Globulin 2.9 Albumin/Globulin Ratio 1.5 TSH Free T4 SARS-CoV-2 (PCR) 01/06/22 01/06/22 01/06/22 20:20 20:20 20:20 WBC RBC Hgb Hct MCV MCH MCHC RDW Plt Count Neut % (Auto) Lymph % (Auto) [place] % (Auto) Eos % (Auto) Baso % (Auto) Neut # (Auto) Lymph # (Auto) [place] # (Auto) Eos # (Auto) Baso # (Auto) PT 11.4 INR 1.0 APTT 33 D-Dimer Sodium Potassium Chloride Carbon Dioxide BUN Creatinine Estimated GFR BUN/Creatinine Ratio Glucose Calcium Magnesium Total Bilirubin AST ALT Alkaline Phosphatase Total Creatine Kinase 105 CK-MB (CK-2) 1.90 CK-MB (CK-2) Rel Index 1.8 Troponin I 0.028 NT-Pro-B Natriuret Pep Total Protein Albumin Globulin Albumin/Globulin Ratio TSH < 0.02 L Free T4 2.53 H SARS-CoV-2 (PCR) 01/06/22 20:20 WBC RBC Hgb Hct MCV MCH MCHC RDW Plt Count Neut % (Auto) Lymph % (Auto) [place] % (Auto) Eos % (Auto) Baso % (Auto) Neut # (Auto) Lymph # (Auto) [place] # (Auto) Eos # (Auto) Baso # (Auto) PT INR APTT D-Dimer Sodium Potassium Chloride Carbon Dioxide BUN Creatinine Estimated GFR BUN/Creatinine Ratio Glucose Calcium Magnesium Total Bilirubin AST ALT Alkaline Phosphatase Total Creatine Kinase CK-MB (CK-2) CK-MB (CK-2) Rel Index Troponin I NT-Pro-B Natriuret Pep Total Protein Albumin Globulin Albumin/Globulin Ratio TSH Free T4 SARS-CoV-2 (PCR) Negative Assessment & Plan Assessment & Plan narrative: Tristan Novak is admitted to the intensive care unit on a diltiazem drip. 1. Atrial fibrillation w/RVR, acute and present on admission * On a diltiazem drip * Start oral metoprolol tartrate per boomswing operator, 25 mg po bid * He was started on apixaban 5 mg in the emergency department and this will continue b.i.d. starting tomorrow * Trend troponins * Complete Echo in the AM 2. Hyperthyroidism, new, present on admission, likely the cause for atrial fibrillation * TSH is 0.02 with a gisel T4 of 2.53 * U/S of the thyroid * Ordered TSH receptor antibody which is a lab send out * Daughter has Graves disease 3. Essential hypertension, chronic and stable * Hold temasartan and chlorthiadone * Start Metoprolol for both bp and rate control 4. Diabetes type 2, * Low dose correctional insulin * A1c 6.5 VTE Prophylaxis: Wells risk score 1.5 patient started anticoagulation with apixaban 5 mg and received his 1st dose tonight and will be dosed b.i.d. starting tomorrow. Patient is admitted to the inpatient intensive care service due to the severity of disease, risks of further disease progression and this stay is expected to exceed 2 midnights. FEN: IV fluids: saline lock, diet: carb controlled diet, labs: CBC, C/BMP, liver enzymes, [facility] ICU, care and involvement in the patient?s care is appreciated. Dispo: probable discharge back to home. Code status: Full Code as discussed with the patient who identifies hs , Lillian as his surrogate and POA. [X] I have utilized all available immediate resources to obtain, update, or review of the patient's current medications COVID-19 COVID-19 status: Negative Result date/Date tested (Pos, Neg/Pending): 01/07/22 Scores Wells' Criteria for PE Clinical signs and symptoms of DVT: No PE is #1 Dx or equally likely: No Heart rate > 100: Yes Immobilization at least 3 days or surg in previous 4 weeks: No History of PE or DVT: No Hemoptysis: No Malignancy w/Treatment within 6 months or palliative: No Wells' PE Score total: 1.5 Quality VTE Deep Vein Thrombosis/Pulmonary Embolism Present on Admission: No MIPS - Admit I confirm the patient?s Advance Care Plan is present, Code status is documented, Surrogate decision maker is in patient?s record [If Yes, STOP here]: Yes MIPS - DC The patient has current or prior documentation of left ventricular ejection fraction (LVEF) less than 40%, or moderate or severely depressed left ventricular systolic function.: No
[2022-01-07] MEDS: METOPROLOL IR 25 MG TABLET PO ×2 (00:50→08:39)
[2022-01-07 01:03] LABS: Hemoglobin A1C% w Est Avg Glu 6.5 % (4.0-6.0)
--- NOTE | 2022-01-07 01:31 | PC.NURSE ---
Shift Note: Patient brought in from ER, awake and orientedx4, ambulatory, at room air, denies any pain/discomfort, on diltiazem drip at 5mls/hr as patient came in for new onset of afib rvr, HR 90s-110s, O2 sat 96% at room air. Patient was seen and examined by RORY Fregoso, new orders given. Tele ICU MD Vidal consulted and patient was seen and examined thru two way video teleconference, verbal orders given. Diltiazem drip titrated to 10mls/hr as HR remains >110s. Patient denies any chest pain at this time. Safety precautions initiated and maintained, call talbot in reach, kept bed on low position. Will continue to monitor.
[2022-01-07] MEDS: ACETAMINOPHEN 325 MG TABLET 650 MG PO ×2 (06:00→12:56)
--- NOTE | 2022-01-07 08:00 | DI.ECHO.S_ITS ---
[place] +---------+ [facility] +---------+ : : [address] : : : : [id number] : : : : Phone: [phone] Echocardiogram Report + + :Name: JACKI BANUELOS Study Date: 01/07/2022 Height: 69 in : :[facility] ReadingLocation: Weight: 270 lb : : Gender: Male BSA: 2.3 m2 : :: 1960 Age: 61 yrs BP: 131/68 mmHg: :Reason For Study: ATRIAL FIBRILLATION : :Ordering Physician: Chencho PAZformed By: Marsha Anderson : :Referring: BRANDIE PAZ : + + Interpretation Summary Atrial fibrillation with controlled rate. Normal LV size and wall thickness. Normal wall motion and left ventricular systolic function. Ejection fraction is 60-65%. Normal chamber sizes. No significant valvular abnormalities. No prior study available for comparison. Procedure: A two-dimensional transthoracic echocardiogram with color flow and Doppler was performed. The study quality was technically adequate. There is no prior echocardiogram noted for this patient. The patient was in atrial fibrillation with heart rates between 72-91 bpm during the exam. Left Ventricle: The left ventricle is normal in size and wall thickness. The ejection fraction is estimated to be 60-65%. Diastolic function could not be accurately assessed due to atrial fibrillation. Right Ventricle: The right ventricle is normal in size and function. Atria: The left atrial size is normal. Right atrial size is normal. There is no Doppler evidence for an interatrial shunt. Mitral Valve: The mitral valve is normal in structure and function. There is trace mitral regurgitation. Aortic Valve: The aortic valve is grossly normal. The aortic valve opens well. There is no aortic valve stenosis. No aortic regurgitation is present. Tricuspid Valve: The tricuspid valve is not well visualized, but is grossly normal. There is trace tricuspid regurgitation. Pulmonic Valve: The pulmonic valve leaflets are thin and pliable; valve motion is normal. There is trace pulmonic regurgitation. Great Vessels: The aortic root is normal size. The dimensions of the ascending aorta are normal. The IVC is of normal diameter and collapses greater than 50% with a sniff. This suggests a low right atrial pressure of 3 mm Hg. Pericardium/ Pleura There is no pericardial effusion. There is no pleural effusion. MMode/2D Measurements & Calculations LVIDd: 4.8 cm LVOT diam: 2.0 cm LVIDs: 3.3 cm Ao root diam: 3.3 cm FS: 30.7 % asc Aorta Diam: 3.3 cm IVSd: 1.0 cm Ao Arch Diam (Prox Trans): 3.0 cm LVPWd: 1.0 cm LV barba. diameter/BSA (cm/m^2): 2.0 LV sys. diameter/BSA (cm/m^2): 1.4 LA A2 area: 27.5 cm2 RA long axis: 5.9 cm LA A4 area: 21.3 cm2 RA area: 18.9 cm2 LA length (vol): 6.4 cm RA vol: 51.3 ml LA vol: 77.9 ml RA : 21.9 ml/m2 LA vol index: 33.2 ml/m2 IVC diam: 1.7 cm RVD1 (basal): 3.8 cm TAPSE: 1.9 cm Doppler Measurements & Calculations Ao V2 max: 154.5 cm/sec LVOT Max Dimitris: 143.9 cm/sec Ao V2 mean: 106.9 cm/sec LV V1 max P.3 mmHg Ao max P.6 mmHg LV V1 VTI: 24.6 cm Ao mean P.3 mmHg ASAEL(I,D): 2.7 cm2 Ao V2 VTI: 28.1 cm ASAEL(V,D): 2.8 cm2 sev ratio: 0.88 ASAEL indexed to BSA (cm^2/m^2): 1.1 MV E max dimitris: 99.9 cm/sec PA V2 max: 91.3 cm/sec MV A max dimitris: 2.4 cm/sec PA V2 mean: 59.3 cm/sec MV E/A: 41.2 PA mean P.7 mmHg Med Peak E' Dimitris: 11.3 cm/sec PA pr(Accel): 51.6 mmHg E/E' med: 8.8 Lat Peak E' Dimitris: 19.1 cm/sec E/E' lat: 5.2 E/e' average: 7.0 MV dec time: 0.18 sec SV(LVOT): 74.9 ml Electronically signed by: Jane Curiel M.D. on Reading Physician:01/07/2022 04:00 PM
[2022-01-07] MEDS: APIXABAN 5 MG TABLET PO (08:39)
--- NOTE | 2022-01-07 08:48 | P.TELICUPN_ITS ---
Subjective Subjective If camera was activated, add TeleICU A-V statement: patient seen through two way A-V system Interval history: Patient summary: ?61 year old male with history of HTN and DM presented 02/07/24 to the ER with rapid heart rate and jaw pain which started about a week ago. Pt. found to be in Afib with RVR and started on diltiazem drip. Lab work-up suggestiveof hyperthyroidism. Troponin neg. Recent events: Patient weaned off Diltaizem drip and HR currently in 80s. Pt. started on metoprolol 25 mg BID PO. Patient reports his jaw pain has improved. Current Medications Current Medications Medications: Home Medications aspirin 81 mg tablet,delayed release 81 mg PO QDAY #0 07/02/16 [History Confirmed 06/05/20] citalopram 10 mg tablet 10 mg PO QDAY #0 07/02/16 [History Confirmed 06/05/20] telmisartan 40 mg-hydrochlorothiazide 12.5 mg tablet (Micardis HCT) 1 tab PO QDAY #0 07/02/16 [History Confirmed 06/05/20] vitamin B complex (B Complex-Vitamin B12) 1 tab PO QDAY #0 07/02/16 [History Confirmed 06/05/20] bupropion HCl 300 mg 24 hr tablet, extended release 300 mg PO QAM 08/31/19 [History Confirmed 06/05/20] cyclobenzaprine 10 mg tablet 10 mg PO BID #20 tab 06/05/20 [Rx Confirmed 06/05/20] cyclobenzaprine 10 mg tablet 10 mg PO TID PRN #10 tab 07/14/20 [Rx] hydrocodone 5 mg-acetaminophen 325 mg tablet ([place]) 1 tab PO Q4-6H PRN #10 tab 07/14/20 [Rx] lidocaine 5 % topical patch 1 patch TOPICAL DAILY PRN #15 ea 07/14/20 [Rx] prednisone 20 mg tablet 40 mg PO DAILY #8 tab 07/14/20 [Rx] diazepam 5 mg tablet (Valium) 5 mg PO Q12HR PRN #10 tab 08/05/20 [Rx] ketorolac 10 mg tablet 10 mg PO Q6H PRN #14 tab 08/07/20 [Rx] prednisone 10 mg tablet See Rx Instructions .ROUTE .COMPLEX #30 tab 08/07/20 [Rx] albuterol sulfate 90 mcg/actuation aerosol inhaler 2 puff INHALATION Q4-6H PRN #8.5 gram 10/05/20 [Rx Confirmed 10/05/20] Visit Medications (administered) Generic Name Dose Route Start Last Admin Trade Name Patricia PRN Reason Stop Dose Admin Acetaminophen 650 mg 01/07/22 06:00 01/07/22 06:00 Acetaminophen 325 Mg Tablet PO 650 mg Q6HR REI Administration Apixaban 5 mg 01/07/22 09:00 01/07/22 08:39 Apixaban 5 Mg Tablet PO 5 mg BID REI Administration DILTIAZEM 125 mg in 125 mls @ 5 mls/hr 01/06/22 20:45 01/07/22 08:30 Diltiazem 125 Mg/125 Ml-D5w IV 0 mg/hr TITRATE REI 0 mls/hr Titration Protocol 5 MG/HR Insulin Human Lispro 0 unit 01/07/22 07:45 01/07/22 08:39 Insulin Lispro 100 Unit/Ml 3ml Vial SUBCUT Not Given ACHS REI Protocol Metoprolol Tartrate 25 mg 01/07/22 00:30 01/07/22 08:39 Metoprolol Ir 25 Mg Tablet PO 25 mg BID REI Administration Objective Labs Result Diagrams: 01/06/22 20:20 01/06/22 20:20 Labs: Laboratory Results - last 24 hr 01/06/22 01/06/22 01/06/22 20:20 20:20 20:20 WBC 6.8 RBC 4.51 Hgb 13.1 L Hct 38.3 L MCV 84.9 MCH 29.2 MCHC 34.3 RDW 13.4 Plt Count 203 Neut % (Auto) 55.3 Lymph % (Auto) 33.6 [place] % (Auto) 7.9 Eos % (Auto) 2.6 Baso % (Auto) 0.6 Neut # (Auto) 3800 Lymph # (Auto) 2300 [place] # (Auto) 500 Eos # (Auto) 200 Baso # (Auto) 0 PT INR APTT D-Dimer < 200 Sodium 139 Potassium 4.2 Chloride 104 Carbon Dioxide 31 BUN 23 H Creatinine 1.08 Estimated GFR > 60 BUN/Creatinine Ratio 21.3 Glucose 128 H Hemoglobin A1c Calcium 9.5 Magnesium 1.8 Total Bilirubin 0.6 AST 35 ALT 46 Alkaline Phosphatase 58 Total Creatine Kinase CK-MB (CK-2) CK-MB (CK-2) Rel Index Troponin I NT-Pro-B Natriuret Pep 374 H Total Protein 7.3 Albumin 4.4 Globulin 2.9 Albumin/Globulin Ratio 1.5 TSH Free T4 Nasal Screen MRSA (PCR) SARS-CoV-2 (PCR) 01/06/22 01/06/22 01/06/22 20:20 20:20 20:20 WBC RBC Hgb Hct MCV MCH MCHC RDW Plt Count Neut % (Auto) Lymph % (Auto) [place] % (Auto) Eos % (Auto) Baso % (Auto) Neut # (Auto) Lymph # (Auto) [place] # (Auto) Eos # (Auto) Baso # (Auto) PT 11.4 INR 1.0 APTT 33 D-Dimer Sodium Potassium Chloride Carbon Dioxide BUN Creatinine Estimated GFR BUN/Creatinine Ratio Glucose Hemoglobin A1c Calcium Magnesium Total Bilirubin AST ALT Alkaline Phosphatase Total Creatine Kinase 105 CK-MB (CK-2) 1.90 CK-MB (CK-2) Rel Index 1.8 Troponin I 0.028 NT-Pro-B Natriuret Pep Total Protein Albumin Globulin Albumin/Globulin Ratio TSH < 0.02 L Free T4 2.53 H Nasal Screen MRSA (PCR) SARS-CoV-2 (PCR) 01/06/22 01/06/22 01/06/22 20:20 20:20 23:16 WBC RBC Hgb Hct MCV MCH MCHC RDW Plt Count Neut % (Auto) Lymph % (Auto) [place] % (Auto) Eos % (Auto) Baso % (Auto) Neut # (Auto) Lymph # (Auto) [place] # (Auto) Eos # (Auto) Baso # (Auto) PT INR APTT D-Dimer Sodium Potassium Chloride Carbon Dioxide BUN Creatinine Estimated GFR BUN/Creatinine Ratio Glucose Hemoglobin A1c 6.5 H Calcium Magnesium Total Bilirubin AST ALT Alkaline Phosphatase Total Creatine Kinase CK-MB (CK-2) CK-MB (CK-2) Rel Index Troponin I NT-Pro-B Natriuret Pep Total Protein Albumin Globulin Albumin/Globulin Ratio TSH Free T4 Nasal Screen MRSA (PCR) Negative for mrsa SARS-CoV-2 (PCR) Negative Exam Vital Signs (past 8 hours): - 01/07/22 01:00 01/07/22 01:05 01/07/22 02:00 Temperature Pulse Rate 104 H 93 H 88 Respiratory Rate 31 H 26 H 23 Blood Pressure 147/63 H 103/52 L Pulse Oximetry 95 95 96 01/07/22 02:14 01/07/22 03:00 01/07/22 04:00 Temperature 98.9 F Pulse Rate 79 68 73 Respiratory Rate 24 21 21 Blood Pressure 94/50 L 129/65 Pulse Oximetry 94 92 95 01/07/22 04:08 01/07/22 05:00 01/07/22 05:09 Temperature Pulse Rate 73 75 81 Respiratory Rate 20 23 22 Blood Pressure 118/56 L Pulse Oximetry 94 94 94 01/07/22 06:00 01/07/22 06:04 Temperature Pulse Rate 78 82 Respiratory Rate 20 21 Blood Pressure 131/68 Pulse Oximetry 96 95 Oxygen Delivery Method CPAP Narrative Exam Narrative: Patient sitting comfortably in bed, answering questions appropriately Quality TeleICU VTE Deep Vein Thrombosis/Pulmonary Embolism Present on Admission: No Assessment & Plan Assessment & Plan narrative: Assessment New onset Afib Hyperthyroidism DM Plan Afib: currently rated controlled. Pt. transitioned from diltiazem drip to metoprolol 15 mg po BID. Continue eliquis. ECHO today. Jaw pain: 1st troponin neg, f/u on second troponin Hyperthyroidism: thyroid u/s and further work-up in outpatient (as [facility] does not have inpatient thyrdoid u/s) DMT2: monitor accuchecks AC and QHS. adjust insulin as needed CCT spent 40 min Time Spent With Patient Critical Care time: I spent a total of [] minutes of critical care time on this patient's care today; this time is exclusive of procedural time.
--- NOTE | 2022-01-07 09:17 | P.PN_ITS ---
Subjective Subjective Date Patient Seen: 01/07/22 Interval history: BRIEF HPI THIS IS A 62-YEAR-OLD MALE WITH A PAST MEDICAL HISTORY SIGNIFICANT FOR HYPERTENSION AND DIABETES. LAST HEMOGLOBIN A1C NOTED IN 2019 WAS ABOVE 7. CAME TO THE HOSPITAL WITH TACHYCARDIA BEING TREATED FOR ATRIAL FIBRILLATION WITH RAPID VENTRICULAR RATE. ON ELIQUIS FOR STROKE PREVENTION TODAY PATIENT DID NOT HAVE ANY SIGNIFICANT COMPLAINTS DENIES ANY CHEST PALPITATIONS DENIES ANY CHEST PAIN NO SHORTNESS OF BREATH OR DYSPNEA ON EXERTION NO DIZZINESS OR LIGHTHEADEDNESS SPOKE TO PATIENT WITH HIS AT BEDSIDE Exam Vital Signs (past 8 hours): - 01/07/22 02:00 01/07/22 02:14 01/07/22 03:00 Temperature Pulse Rate 88 79 68 Respiratory Rate 23 24 21 Blood Pressure 103/52 L 94/50 L Pulse Oximetry 96 94 92 01/07/22 04:00 01/07/22 04:08 01/07/22 05:00 Temperature 98.9 F Pulse Rate 73 73 75 Respiratory Rate 21 20 23 Blood Pressure 129/65 118/56 L Pulse Oximetry 95 94 94 01/07/22 05:09 01/07/22 06:00 01/07/22 06:04 Temperature Pulse Rate 81 78 82 Respiratory Rate 22 20 21 Blood Pressure 131/68 Pulse Oximetry 94 96 95 Oxygen Delivery Method CPAP Narrative Exam Narrative: NO ACUTE DISTRESS. PATIENT IS ALERT ORIENTED X3. VITAL SIGNS STABLE HEAD ATRAUMATIC NORMOCEPHALIC NECK : SUPPLE WITHOUT ADENOPATHY NO CAROTID BRUITS EYE: EOMI, PERRLA, NORMAL CONJUNCTIVA; NO JAUNDICE CHEST: REGULAR RATE. NO RUBS. PMI IS NON DISPLACED. NO MURMURS; NORMAL S1- S2 PULMONARY: DECREASED BS OVER THE BASES. MILD BIBASILAR CRACKLES NOTED; NO INCREASED DULLNESS TO PERCUSSION ABDOMEN: OBESE BUT SOFT. NONTENDER. NONDISTENDED. BOWEL SOUNDS ARE PRESENT IN ALL 4 QUADRANTS. NO MASS. EXTREMITIES: NO EDEMA.. NO CYANOSIS CLUBBING NOTED. NEURO: CRANIAL NERVES 2-12 GROSSLY INTACT. NO FOCAL NEUROLOGICAL DEFICIT NOTED. MSK: NORMAL RANGE OF MOTION FOR AGE. NO JOINT EFFUSION. SKIN: NORMAL FOR ETHNICITY; NO ECCHYMOSIS. NO LESION. GOOD TURGOR.; NO RASHES : NORMAL EXTERNAL GENITALIA. PSYCH : APPROPRIATE MOOD AND AFFECT. ALERT AWAKE ORIENTED X3 Objective ECG Impression: ATRIAL FIBRILLATION Labs Result Diagrams: 01/06/22 20:20 05/22/22 20:20 Labs: Laboratory Results - last 24 hr 01/06/22 01/06/22 01/06/22 20:20 20:20 20:20 WBC 6.8 RBC 4.51 Hgb 13.1 L Hct 38.3 L MCV 84.9 MCH 29.2 MCHC 34.3 RDW 13.4 Plt Count 203 Neut % (Auto) 55.3 Lymph % (Auto) 33.6 [place] % (Auto) 7.9 Eos % (Auto) 2.6 Baso % (Auto) 0.6 Neut # (Auto) 3800 Lymph # (Auto) 2300 [place] # (Auto) 500 Eos # (Auto) 200 Baso # (Auto) 0 PT INR APTT D-Dimer < 200 Sodium 139 Potassium 4.2 Chloride 104 Carbon Dioxide 31 BUN 23 H Creatinine 1.08 Estimated GFR > 60 BUN/Creatinine Ratio 21.3 Glucose 128 H Hemoglobin A1c Calcium 9.5 Magnesium 1.8 Total Bilirubin 0.6 AST 35 ALT 46 Alkaline Phosphatase 58 Total Creatine Kinase CK-MB (CK-2) CK-MB (CK-2) Rel Index Troponin I NT-Pro-B Natriuret Pep 374 H Total Protein 7.3 Albumin 4.4 Globulin 2.9 Albumin/Globulin Ratio 1.5 TSH Free T4 Nasal Screen MRSA (PCR) SARS-CoV-2 (PCR) 01/06/22 01/06/22 01/06/22 20:20 20:20 20:20 WBC RBC Hgb Hct MCV MCH MCHC RDW Plt Count Neut % (Auto) Lymph % (Auto) [place] % (Auto) Eos % (Auto) Baso % (Auto) Neut # (Auto) Lymph # (Auto) [place] # (Auto) Eos # (Auto) Baso # (Auto) PT 11.4 INR 1.0 APTT 33 D-Dimer Sodium Potassium Chloride Carbon Dioxide BUN Creatinine Estimated GFR BUN/Creatinine Ratio Glucose Hemoglobin A1c Calcium Magnesium Total Bilirubin AST ALT Alkaline Phosphatase Total Creatine Kinase 105 CK-MB (CK-2) 1.90 CK-MB (CK-2) Rel Index 1.8 Troponin I 0.028 NT-Pro-B Natriuret Pep Total Protein Albumin Globulin Albumin/Globulin Ratio TSH < 0.02 L Free T4 2.53 H Nasal Screen MRSA (PCR) SARS-CoV-2 (PCR) 01/06/22 01/06/22 01/06/22 20:20 20:20 23:16 WBC RBC Hgb Hct MCV MCH MCHC RDW Plt Count Neut % (Auto) Lymph % (Auto) [place] % (Auto) Eos % (Auto) Baso % (Auto) Neut # (Auto) Lymph # (Auto) [place] # (Auto) Eos # (Auto) Baso # (Auto) PT INR APTT D-Dimer Sodium Potassium Chloride Carbon Dioxide BUN Creatinine Estimated GFR BUN/Creatinine Ratio Glucose Hemoglobin A1c 6.5 H Calcium Magnesium Total Bilirubin AST ALT Alkaline Phosphatase Total Creatine Kinase CK-MB (CK-2) CK-MB (CK-2) Rel Index Troponin I NT-Pro-B Natriuret Pep Total Protein Albumin Globulin Albumin/Globulin Ratio TSH Free T4 Nasal Screen MRSA (PCR) Negative for mrsa SARS-CoV-2 (PCR) Negative [facility] Medical History (Updated 01/07/22 @ 02:10 by JOAN Turpin) Atrial fibrillation with rapid ventricular response Diabetes type 2, controlled Hyperthyroidism determined by thyroid function test Low back strain Surgical History (Updated 01/07/22 @ 02:10 by JOAN Turpin) S/P cervical spinal fusion Family History (Updated 01/07/22 @ 02:12 by JOAN Turpin) Daughter Graves disease Mother Atrial fibrillation, chronic Father Cardiac arrest Rheumatic fever Social History household members: spouse Smoking Status: Never smoker eating out: 1-3 times/week Type(s) of exercise: walking Assessment & Plan Assessment & Plan narrative: IMPRESSION ATRIAL FIBRILLATION WITH RVR. ON METOPROLOL POSSIBLE HYPERTHYROIDISM. WILL NEED OUTPATIENT ENDOCRINOLOGY WORKUP MORBID OBESITY. WITH A BMI OF 40 POSSIBLE DIABETES. A1C 6.5 HYPERTENSION PER HISTORY BRADYCARDIA PER HISTORY. REPORTED A USUAL RESTING HEART RATE IN THE LOW 50S/ UPPER 40S PLAN HIS CHADS VASC SCORE IF WE INCLUDE THE DIABETES IS AROUND 2 WILL GO AHEAD AND START ON ELIQUIS PER PATIENT PREFERENCE MONITOR CLOSELY FOR SIGN OF BLEEDING WHILE ON ANTICOAGULANT THERAPY KEEP ON TELE AT ALL TIME IN REGARD TO HIS ATRIAL FIBRILLATION STARTED ON ORAL METOPROLOL B.I.D. HOLD THE CARDIZEM DRIP FOR NOW IN THE WORSE CASE SCENARIO, DUE TO REPORTED HISTORY OF BRADYCARDIA PER PATIENT WHICH, PER PATIENT, IS NORMAL MIGHT NEED A PACEMAKER. IF THIS BECOMES INDICATED, PATIENT MIGHT NEED TO BE TRANSFERRED TO A TERTIARY FACILITY FOR HIGHER LEVEL OF CARE ECHOCARDIOGRAM PENDING WILL NEED TO BE SEEN BY CARDIOLOGY. HOWEVER THIS COULD BE DONE OUTPATIENT UNLESS ANY EMERGENT ISSUES DEVELOP DURING THIS HOSPITAL STAY IN REGARD TO HIS ELEVATED T4, WILL NEED TO SEE ENDOCRINOLOGY OUTPATIENT WILL CONSIDER STARTING ON PTU VS METHIMAZOLE IF INDICATED ALREADY ON A BETA-[place] DUE TO THE AFIB WILL CONSIDER ADDING STEROID WELL IF INDICATED ADDITIONAL MANAGEMENT PER CLINICAL COURSE POSSIBLE DISCHARGE IN THE NEXT 24 HOURS CLINICALLY STABLE Time Spent With Patient Critical Care time: I spent a total of [] minutes of critical care time on this patient's care today; this time is exclusive of procedural time. Quality VTE Deep Vein Thrombosis/Pulmonary Embolism Present on Admission: No
[2022-01-07 11:01] LABS: BUN Creatinine Ratio 17.6 (6-22); Blood Urea Nitrogen 19 mg/dL (9-20); Calcium 9.1 mg/dL (8.4-10.2); Carbon Dioxide 29 mmol/L (22-32); Chloride 104 mmol/L (98-107); Estimated Glomerular Filt Rate > 60 mL/min (>60); Glucose 179 mg/dL (80-110); HEMOLYSIS < 15 (0-50); Magnesium 1.7 mg/dL (1.6-2.3); Potassium 4.2 mmol/L (3.4-5.1); Sodium 137 mmol/L (137-145)
[2022-01-07 11:13] LABS: Troponin I 0.015 ng/mL (0.01-0.034)
[2022-01-07] MEDS: MAGNESIUM SULFATE 2 GM/50 ML PIGGYBACK IV (12:55)
--- NOTE | 2022-01-07 14:06 | PC.NURSE ---
Addendum entered by [place] Sharp R.N. 01/07/22 14:40: Pt has converted to SB @ 1435. Pt had noticed some [place] and jaw discomfort just prior to converting. Feeling improved at 53 at present , requested EKG confirmation. Original Note: AM shift Pt is on dilt gtt at start of shift, d/c and oral metoprolol started. VSS stable and Pt is denying CP or jaw discomfort.
--- NOTE | 2022-01-07 15:29 | CM.DANOTE ---
DCP: Payor: out of State [place] PCP: Unknown Pt is a 61 y.o. M who was admitted for rapid heart rate due to A-fib. ECHO done and still pending results. DCP attempted to see pt this afternoon but Dr. Urias was in there making a plan with the patient. Per RN, pt independent in room. Pt has been on cardioversion and his metroprolol is not managing his HR. P: DCP to follow for bedside assessment in the AM if pt remains admitted. Possible hospital transfer or d/c home tonight pending needs. Due to triage needs, no bedside assessment completed at this time. Bee Delarosa, [place]/DCP
[2022-01-08] VITALS: BP 115/59; PULSE 52; RESP 24; TEMP 36.9; O2SAT 97
[2022-01-08 02:20] LABS: Add Manual Diff / Slide Review NO; Basophils Absolute Auto 0 /uL (0-100); Basophils Percent Auto 0.2 % (0-2); Eosinophils Absolute Auto 200 /uL (0-450); Eosinophils Percent Auto 2.9 % (2-4); Hematocrit 34.1 % (41-53); Hemoglobin 11.7 g/dL (13.5-17.5); Lymphocytes Absolute Auto 1900 /uL (1100-4500); Lymphocytes Percent Auto 29.5 % (25-40); Mean Corpuscular HGB Conc 34.3 % (30-36); Mean Corpuscular Volume 84.5 fL (80-100); Monocytes Absolute Auto 500 /uL (0-900); Monocytes Percent Auto 8.1 % (3-14); Neutrophils Absolute Auto 3900 /uL (1500-7000); Neutrophils Percent Auto 59.3 % (50-75); Platelet Count 189 X10^3/uL (150-400); Red Blood Cell Count 4.04 X10^6/uL (4.5-5.9); Red Cell Distribution Width 13.5 % (11.6-14.8); White Blood Cell Count 6.6 X10^3/uL (4.5-11.0)
[2022-01-08 02:32] LABS: Cholesterol 120 mg/dL (140-199); HDL Cholesterol 33 mg/dL (40-60); LDL Cholesterol Calculated 62 mg/dL (<100); Triglycerides 124 mg/dL (35-150)
[2022-01-08 02:33] LABS: Blood Urea Nitrogen 22 mg/dL (9-20); Carbon Dioxide 26 mmol/L (22-32); Chloride 103 mmol/L (98-107); Estimated Glomerular Filt Rate > 60 mL/min (>60); Glucose 146 mg/dL (80-110); HEMOLYSIS < 15 (0-50); Magnesium 1.8 mg/dL (1.6-2.3); Potassium 3.8 mmol/L (3.4-5.1); Sodium 136 mmol/L (137-145)
[2022-01-08 02:43] LABS: Troponin I 0.017 ng/mL (0.01-0.034)
[2022-01-08 04:00] VITALS: BP 116/65; PULSE 55; RESP 19; TEMP 37.2; O2SAT 96
[2022-01-08 07:23] VITALS: O2SAT 95
[2022-01-08 08:00] VITALS: BP 123/61; PULSE 69; RESP 18; TEMP 37.2; O2SAT 97
--- NOTE | 2022-01-08 09:42 | PM.DS.1 ---
History of Present Illness History of Present Illness Chief complaint: Rapid heart rate found to be in A-fib w/RVR Narrative: History of Present Illness Date Patient Seen: 01/07/22 Time Patient Seen: 00:34 Chief complaint: Rapid heart rate found to be in A-fib w/RVR Narrative: Tristan Novak is a 61-year-old type 2 diabetic with hypertension was driving back home from [place] when [place] [address] which is approximately 15 miles from in a [place] started to developed jaw pain on both sides of his mouth.? It eventually led to headache.? When he arrived home he launched his iPhone jarvis and found that his heart rate was quite fast and that it was reading that he was in atrial fibrillation.? That time he stated he had a heart rate of 118.? He is normally bradycardic he states his heart rate normally goes between 45 and 55 beats per minute.? A jaw pain eventually went away.? He feels like he can not walk any long distance on as he is had recent neck surgery and is due for lumbar surgery.? He states that he feels like he has thrush in his throat and is currently very anxious.? He denies shortness of breath although he does seem to have exercise intolerance, he has anterior neck pain likely incisional, denied nausea or vomiting, dysuria, diarrhea or constipation.? He does have peripheral neuropathy in the right leg he states this from herniated disc in his back.? He does have continued difficulties with neck pain and occasional swallowing issues associated with the ACDF surgery he had 7 months ago.? He states that he lost his voice for about 3 months and recently regained his ability to speak.? 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 Chest x-ray did done in the emergency department only indicated a linear left retrocardiac opacity consistent with atelectasis or developing consolidation.? Patient is afebrile, blood pressure 147/63, heart rate 93, respiratory rate 26, oxygen saturation of 95% on room air he weighs 124 kg with a BMI of 39.9.? He has mildly anemic with hemoglobin and hematocrit of 13.1 and 30.3 respectively, D-dimer was negative, glucose 128 with a hemoglobin A1c of 6.5, proBNP P is 374, ST HS is less than 0.02 with a free T4 of 2.53.? TSH receptor antibody is pending, and COVID-19 PCR was negative. Discharge Providers Provider Date of admission: 01/06/22 22:49 Discharge Date: 01/08/22 Consults: 01/07/22 00:24 Consult to Tele-senior java j2ee developer Routine Comment: Consulting Provider: [employer] Reason for consultation: [employer] Has provider been notified: Yes Discharge provider: Nam Mcgowan, DO Summary Hospital Course Discharge Diagnosis: ? ATRIAL FIBRILLATION WITH RVR.? RESOLVED; NOOW IN SR WITH BASELINE RATE APPRECIATED POSSIBLE HYPERTHYROIDISM.? WILL NEED OUTPATIENT ENDOCRINOLOGY WORKUP MORBID OBESITY.? WITH A BMI OF 40 TYPE 2 DIABETES.? A1C 6.5; CONTINUE HOME MEDS HYPERTENSION PER HISTORY BRADYCARDIA PER HISTORY.? REPORTED A? USUAL RESTING HEART RATE IN THE LOW 50S/? UPPER 40S Hospital Course: THIS IS A 61-YEAR-OLD MALE WHICH WAS TREATED IN THE HOSPITAL FOR ATRIAL FIBRILLATION WITH RAPID VENTRICULAR RATE. PATIENT DENIES ANY PRIOR HISTORY ON ADMISSION. HOWEVER REPORTED A HISTORY OF FAMILIAL HYPERTHYROIDISM. PATIENT WAS STARTED ON CARDIZEM WHICH WAS SUBSEQUENTLY STOPPED. HE WAS ALSO STARTED ON METOPROLOL. HE HAS RHYTHM WENT BACK INTO SINUS SHORTLY AFTER STARTED METOPROLOL. HE WAS STARTED ON ELIQUIS WELL WHICH 1 DOSE GIVEN DUE TO AMANDA VASC SCORE OF AROUND 2. IN ANY CASE, ONCE PATIENT WENT INTO SINUS RHYTHM, HIS RATE WENT BACK TO HIS BASELINE WHICH IS IN THE LOWER 50S UPPER 40S AT BASELINE. FOR THIS REASON, WE HAVE NOT BEEN ABLE TO START PATIENT ON RATE CONTROL MEDS. HE DOES HAVE A HISTORY OF HYPERTENSION AND IS ON A ARB/ HCTZ COMBO WHICH WILL BE CONTINUED. PATIENT NOTABLY HAD LABS SUSPICIOUS FOR POSSIBLE HYPERTHYROIDISM. HE WILL NEED TO FOLLOW UP WITH ENDOCRINOLOGY OUTPATIENT FOR FURTHER WORKUP WILL DEFER STARTING PATIENT ON MEDICATIONS IN REGARD TO THE SUSPECTED THYROID DISORDER UNTIL FURTHER WORKUP BY ENDOCRINOLOGY TEAM SINCE ADMISSION, PATIENT HAS BEEN ASYMPTOMATIC. I HAD MULTIPLE TALK WITH PATIENT AND HIS AT BEDSIDE. THE THE STATING THAT IT IS VERY IMPERATIVE THAT THE FOLLOW-UP WITH THE PROPER PERSONAL ATTENDANT. THEY DO HAVE PLAN TO SEE CARDIOLOGY AND ENDOCRINOLOGY SOON AFTER DISCHARGE FROM THE HOSPITAL. ACTIVITIES TOLERATED CARDIAC/DIABETIC DIET FOLLOW-UP PRIMARY CARE PHYSICIAN, CARDIOLOGY AND ENDOCRINOLOGY WITHIN 1-3 WEEKS Status at Discharge Cognitive/behavioral status at discharge: oriented Functional status at discharge: independent ambulation Overall status at discharge: patient is back to baseline Time Spent with Patient Time spent: Greater than 30 minutes Exam Vital Signs (past 8 hours): - 01/08/22 04:00 01/08/22 07:23 01/08/22 08:00 Temperature 99.0 F 98.9 F Pulse Rate 55 L 69 Respiratory Rate 19 18 Blood Pressure 116/65 123/61 Pulse Oximetry 96 95 97 Oxygen Delivery Method Room Air Oxygen Flow Rate 0 Narrative Exam Narrative: NO ACUTE DISTRESS. PATIENT IS ALERT ORIENTED X3. VITAL SIGNS STABLE HEAD ATRAUMATIC NORMOCEPHALIC NECK : SUPPLE WITHOUT ADENOPATHY NO CAROTID BRUITS EYE: EOMI, PERRLA, NORMAL CONJUNCTIVA; NO JAUNDICE CHEST: BRADYCARDIA. NO RUBS. PMI IS NON DISPLACED. NO MURMURS; NORMAL S1-S2 PULMONARY: DECREASED BS OVER THE BASES. MILD BIBASILAR CRACKLES NOTED; NO INCREASED DULLNESS TO PERCUSSION ABDOMEN: SOFT. NONTENDER. NONDISTENDED. BOWEL SOUNDS ARE PRESENT IN ALL 4 QUADRANTS. NO MASS. EXTREMITIES: NO EDEMA.. NO CYANOSIS CLUBBING NOTED. NEURO: CRANIAL NERVES 2-12 GROSSLY INTACT. NO FOCAL NEUROLOGICAL DEFICIT NOTED. MSK: NORMAL RANGE OF MOTION FOR AGE. NO JOINT EFFUSION. SKIN: NORMAL FOR ETHNICITY; NO ECCHYMOSIS. NO LESION. GOOD TURGOR.; NO RASHES : NORMAL EXTERNAL GENITALIA. PSYCH : APPROPRIATE MOOD AND AFFECT. ALERT AWAKE ORIENTED X3 Objective Labs Result Diagrams: 01/08/22 01:45 01/08/22 01:45 Labs: Laboratory Results - last 24 hr 01/07/22 01/08/22 01/08/22 10:37 01:45 01:45 WBC RBC Hgb Hct MCV MCH MCHC RDW Plt Count Neut % (Auto) Lymph % (Auto) [place] % (Auto) Eos % (Auto) Baso % (Auto) Neut # (Auto) Lymph # (Auto) [place] # (Auto) Eos # (Auto) Baso # (Auto) Sodium 137 Potassium 4.2 Chloride 104 Carbon Dioxide 29 BUN 19 Creatinine 1.08 Estimated GFR > 60 BUN/Creatinine Ratio 17.6 Glucose 179 H Calcium 9.1 Magnesium 1.7 Troponin I 0.015 0.017 Triglycerides 124 Cholesterol 120 L LDL Cholesterol, Calc 62 HDL Cholesterol 33 L 01/08/22 01/08/22 01:45 01:45 WBC 6.6 RBC 4.04 L Hgb 11.7 L Hct 34.1 L MCV 84.5 MCH 29.0 MCHC 34.3 RDW 13.5 Plt Count 189 Neut % (Auto) 59.3 Lymph % (Auto) 29.5 [place] % (Auto) 8.1 Eos % (Auto) 2.9 Baso % (Auto) 0.2 Neut # (Auto) 3900 Lymph # (Auto) 1900 [place] # (Auto) 500 Eos # (Auto) 200 Baso # (Auto) 0 Sodium 136 L Potassium 3.8 Chloride 103 Carbon Dioxide 26 BUN 22 H Creatinine 1.00 Estimated GFR > 60 BUN/Creatinine Ratio 22.0 Glucose 146 H Calcium 9.0 Magnesium 1.8 Troponin I Triglycerides Cholesterol LDL Cholesterol, Calc HDL Cholesterol [facility] Medical History (Updated 01/07/22 @ 02:10 by JOAN Turpin) Atrial fibrillation with rapid ventricular response Diabetes type 2, controlled Hyperthyroidism determined by thyroid function test Low back strain Surgical History (Updated 01/07/22 @ 02:10 by JOAN Turpin) S/P cervical spinal fusion Family History (Updated 01/07/22 @ 02:12 by JOAN Turpin) Daughter Graves disease Mother Atrial fibrillation, chronic Father Cardiac arrest Rheumatic fever Social History household members: spouse Smoking Status: Never smoker eating out: 1-3 times/week Type(s) of exercise: walking Discharge Plan Discharge Plan Patient Disposition: Home Discharge orders & Medications Prescriptions: Continued telmisartan-hydrochlorothiazid [Micardis HCT] 40 MG/12.5 MG tablet 1 tab PO QDAY Qty: 0 0RF vitamin B complex [B Complex-Vitamin B12] 1 EACH tablet 1 tab PO QDAY Qty: 0 0RF metformin 500 mg tablet extended release 24 hr 500 mg PO BID 0RF Discontinued albuterol sulfate 90 mcg/actuation HFA aerosol inhaler 2 puff INHALATION Q4-6H PRN (Reason: bronchospasm) Qty: 8.5 0RF Diet/Activity/Treatments Diet: Low-fat and Low-cholesterol Activity: TOLERATED Visit Report/Discharge Packet Instructions: DI for Graves Disease, DI for Hyperthyroidism Discharge Data Attending Provider: Homa Fregoso VTE Deep Vein Thrombosis/Pulmonary Embolism Present on Admission: No
--- NOTE | 2022-01-08 12:53 | PC.NURSE ---
Am shift Pt is stable overnight with DC pending, IV removed. Extensive teaching re: F/u POC and medication changes. Referrals for follow up made, Pt and are actively involved in follow up care. Tele DC'd and Pt ambulated out to private vehicle. Appreciative of care.
--- NOTE | 2022-01-08 15:47 | CM.DPC ---
DCP Cont: Pt is d/c today to home. Per MD, pt a fib is now resolved. Pt is needing endocrinology work up for possible hyperthyroidism. Pt also plans to follow up with cardiology. Pt has PCP in [place] and is working with them for referrals. P: Pt d/c hospital to home. Pt to consult with endocrinology and follow up with cardiology. Bee Delarosa RN/DCP
[2022-01-09 10:45] LABS: Thyrotropin Receptor AB 3.81 IU/L (0.00-1.75)
== END 2022-01-08 10:00 | disposition home or self-care (01) ==
LOC: ED 20:47 → ICU 22:52
PROVIDERS: Hospitalist; Internal Medicine; Admitting Provider Nurse Practitioner Family; Emergency Provider Emergency Medicine; Referring Provider Nurse Practitioner Family; Visit Provider Nurse Practitioner Family
DX: I48.91 Unspecified atrial fibrillation (principal); E66.01 Morbid (severe) obesity due to excess calories; I10 Essential (primary) hypertension; E11.9 Type 2 diabetes mellitus without complications; Z20.822 Contact with and (suspected) exposure to COVID-19; Z68.41 Body mass index [BMI] 40.0-44.9, adult; Z79.84 Long term (current) use of oral hypoglycemic drugs
CPT/HCPCS: 36415; 71045; 80048; 80053; 80061; 82550; 82553; 82962; 83036; 83520; 83735; 83880; 84439; 84443; 84484; 85025; 85379; 85610; 85730; 87635; 87797; 93005; 93306; 94762; 96365; 96366; 96367; 96376; 99284; C9803; G0378; J1815; J3475

== ENCOUNTER → 2022-01-22 08:18 | Outpatient (CLI) | payer BC, SELFPAY ==
[2022-01-06 23:51] VITALS: BMI 39.9
--- NOTE | 2022-01-22 08:21 | DI.US.S_ITS ---
PROCEDURE: US THYROID INDICATIONS: HYPERTHYROIDISM TECHNIQUE: Real-time scanning was performed of the thyroid gland, with image documentation. COMPARISON: None. FINDINGS: Right: Thyroid lobe measures 4.5 x 1.9 x 1.9 cm, and is homogeneous in echotexture. Left: Thyroid lobe measures 4.4 x 2.1 x 1.6 cm, and is homogenous in echotexture. Isthmus: 4.1 mm thick. Both thyroid lobes have a diffusely heterogenous appearance with areas of hypodensity measuring less than 4 mm. There are no focal discrete nodules. IMPRESSION: Heterogenous thyroid with no discrete focal nodules. Recommend follow-up ultrasound in 1 year. Dictated by: Trino Parisi M.D. on 01/22/2022 at 10:45 Approved by: Trino Parisi M.D. on 01/22/2022 at 10:48
== END ==
PROVIDERS: PCP Internal Medicine; Referring Provider Internal Medicine; Visit Provider Internal Medicine
DX: E05.90 Thyrotoxicosis, unspecified without thyrotoxic crisis or storm (principal)
CPT/HCPCS: 76536

== ENCOUNTER → 2022-01-25 06:58 | Outpatient (CLI) | payer BC, SELFPAY ==
[2022-01-06 23:51] VITALS: BMI 39.9
--- NOTE | 2022-01-25 07:00 | DI.US.S_ITS ---
PROCEDURE: US EXTREMITY NONVASC LOWER RT INDICATIONS: RIGHT GROIN LUMP TECHNIQUE: Real-time scanning was performed of the right groin, with image documentation. COMPARISON: None. FINDINGS: No soft tissue mass or fluid collection is seen in right inguinal region at patient's reported area of palpable lump. IMPRESSION: No abnormality is seen in right groin. Dictated by: Omero Stovall M.D. on 01/25/2022 at 9:11 Approved by: Omero Stovall M.D. on 01/25/2022 at 9:13
== END ==
PROVIDERS: PCP Internal Medicine; Referring Provider Internal Medicine; Visit Provider Internal Medicine
DX: R10.31 Right lower quadrant pain (principal); R19.03 Right lower quadrant abdominal swelling, mass and lump
CPT/HCPCS: 76882

== ENCOUNTER → 2022-01-28 07:58 | Outpatient (CLI) | payer BC, SELFPAY ==
[2022-01-06 23:51] VITALS: BMI 39.9
[2022-01-28 09:07] LABS: Alanine Aminotransferase 44 IU/L (<50); Albumin 4.2 g/dL (3.5-5.0); Albumin Globulin Ratio 1.5 (1.0-2.8); Alkaline Phosphatase 60 U/L (38-126); Aspartate Aminotransferase 30 IU/L (17-59); Bilirubin Total 0.9 mg/dL (0.2-1.3); Blood Urea Nitrogen 23 mg/dL (9-20); Calcium 9.7 mg/dL (8.4-10.2); Carbon Dioxide 27 mmol/L (22-32); Chloride 101 mmol/L (98-107); Cholesterol 99 mg/dL (140-199); Estimated Glomerular Filt Rate > 60 mL/min (>60); Globulin 2.8 g/dL (1.7-4.1); Glucose 131 mg/dL (80-110); HDL Cholesterol 39 mg/dL (40-60); HEMOLYSIS < 15 (0-50); LDL Cholesterol Calculated 37 mg/dL (<100); Potassium 4.9 mmol/L (3.4-5.1); Sodium 136 mmol/L (137-145); Triglycerides 117 mg/dL (35-150)
== END ==
PROVIDERS: PCP Internal Medicine
DX: E78.00 Pure hypercholesterolemia, unspecified (principal)
CPT/HCPCS: 36415; 80053; 80061

== ENCOUNTER → 2022-03-21 14:07 | Outpatient (CLI) | payer BC, SELFPAY ==
[2022-01-06 23:51] VITALS: BMI 39.9
--- NOTE | 2022-03-21 14:09 | DI.RAD.S_ITS ---
PROCEDURE: XR SHOULDER LT MIN 2V INDICATIONS: Shoulder pain TECHNIQUE: 3 views of the shoulder were acquired. COMPARISON: [facility], CR, XR SHOULDER LT MIN 2V, 09/06/2020, 12:02. FINDINGS: Bones: No fractures or dislocations. No suspicious bony lesions. Visualized ribs appear intact. Mild periarticular osteophyte formation at the acromioclavicular and glenohumeral joints. Soft tissues: No suspicious soft tissue calcifications. IMPRESSION: Osteoarthritis. No acute fracture. No osseous lesion. If symptoms and/or clinical suspicion for pathology persist, further assessment with repeat, or advanced imaging (e.g., CT, MRI, or bone scan) may be helpful for further assessment. Dictated by: Ousmane Nichols M.D. on 03/21/2022 at 14:40 Transcribed by: ONEIL on 03/21/2022 at 14:41 Approved by: Ousmane Nichols M.D. on 03/21/2022 at 16:20
== END ==
PROVIDERS: PCP Internal Medicine; Referring Provider Nurse Practitioner Family; Visit Provider Nurse Practitioner Family
DX: M25.512 Pain in left shoulder (principal); M19.012 Primary osteoarthritis, left shoulder
CPT/HCPCS: 73030

== ENCOUNTER → 2022-06-07 07:32 | Outpatient (CLI) | payer BC, SELFPAY ==
[2022-01-06 23:51] VITALS: BMI 39.9
--- NOTE | 2022-06-07 07:34 | DI.MRI.S_ITS ---
PROCEDURE: MR HEAD/BRAIN WO CON INDICATIONS: Headache, unspecified TECHNIQUE: Noncontrast axial T1 spin echo, axial T2 fast spin echo, sagittal and axial FLAIR, coronal T2 fast spin echo, axial gradient echo, axial diffusion and ADC through the brain. COMPARISON: None. FINDINGS: Image quality: Excellent. CSF Spaces: Basal cisterns are patent. No extra-axial fluid collections. Ventricles are normal in size and shape. Brain: No intracranial masses or hemorrhage. Rodrigez/white matter interface is normal. Brainstem appears normal. Diffusion-weighted images demonstrate no acute ischemic insult. No chronic ischemic insults. Normal intravascular flow voids are present. Skull and face: Calvarium has normal marrow signal. Orbits appear normal. Sinuses: Sinuses demonstrate minimal scattered pansinus mucosal thickening. No fluid levels. Trace left mastoid air cell fluid. IMPRESSION: 1. No acute intracranial process. Dictated by: Breana Campbell M.D. on 06/07/2022 at 9:01 Approved by: Breana Campbell M.D. on 06/07/2022 at 9:04
== END ==
PROVIDERS: PCP Internal Medicine; Referring Provider Psychiatry & Neurology Neurology; Visit Provider Psychiatry & Neurology Neurology
DX: R51.9 Headache, unspecified (principal)
CPT/HCPCS: 70551

== ENCOUNTER → 2022-09-13 08:27 | Outpatient (CLI) | payer BC, SELFPAY ==
[2022-01-06 23:51] VITALS: BMI 39.9
[2022-09-13 10:36] LABS: Free T3, Triiodothyronine Free 3.58 pg/mL (2.77-5.27); Free T4, Direct Thyroxine 1.18 ng/dL (0.78-2.19)
[2022-09-13 10:50] LABS: Thyroid Stimulating Hormone 1.62 uIU/mL (0.47-4.68)
== END ==
PROVIDERS: PCP Internal Medicine; Referring Provider Internal Medicine Endocrinology, Diabetes & Metabolism; Visit Provider Internal Medicine Endocrinology, Diabetes & Metabolism
DX: E05.00 Thyrotoxicosis with diffuse goiter without thyrotoxic crisis or storm (principal)
CPT/HCPCS: 36415; 84439; 84443; 84481

== ENCOUNTER → 2023-05-15 19:17 | Outpatient (CLI) | payer BC, SELFPAY ==
[2022-01-06 23:51] VITALS: BMI 39.9
--- NOTE | 2023-05-15 | DI.MRI.S_ITS ---
PROCEDURE: MR KNEE RT WO CON INDICATIONS: pain in right knee TECHNIQUE: Noncontrast sagittal PD fast spin echo and T2 fast spin echo with fat saturation, sagittal 3-D FLASH with fat saturation; coronal T1 spin echo and PD fast spin echo with fat saturation, and axial PD fast spin echo with fat saturation through the knee. COMPARISON: None. FINDINGS: Image quality: Excellent. Menisci: There is oblique tear involving the posterior horn of the medial meniscus. There is a 0.6 x 1.4 cm meniscal cyst adjacent to the posterior horn of the medial meniscus. The lateral meniscus demonstrates normal morphology and internal signal. The meniscal root ligaments appear intact. Cruciate ligaments: The anterior and posterior cruciate ligaments appear intact. Medial structures: The medial collateral ligament appears intact. The semimembranosus tendon insertions and meniscocapsular junction appear intact. Visualized portions of the pes anserinus tendons appear normal. No abnormal bursal fluid. Lateral structures: The lateral collateral ligament, long and short heads of the biceps femoris tendon appear intact. The popliteus tendon appears normal. Iliotibial band appears normal. Anterior structures: The quadriceps and patellar tendons appear intact. Patellar alignment is normal. There is low-grade quadriceps tendinitis and patellar tendinitis. No femoral trochlear dysplasia or ventral trochlear prominence. No edema in the infrapatellar fat pad. Bones and cartilage: No bone marrow contusions or fractures. There is tricompartmental cartilage thinning and fibrillation. Full-thickness cartilage defect is present in the superior aspect of the medial facet of patella. Joint space: There is small knee joint effusion. No Byrd's cyst. There is a small synovial cyst associated with the proximal tibial fibular joint along the popliteal tendon. Normal appearing synovial plicae are incidentally noted. IMPRESSION: 1. Oblique tear of the posterior horn of the medial meniscus with a 0.6 x 1.4 cm meniscal cyst. 2. Full-thickness cartilage defect involving the superior aspect of the medial facet of patella. 3. Mild quadriceps tendinitis and patellar tendinitis. 4. Small knee joint effusion. Dictated by: Manohar Tatum M.D. on 05/16/2023 at 11:21 Approved by: Manohar Tatum M.D. on 05/16/2023 at 11:31
== END ==
PROVIDERS: PCP Internal Medicine; Referring Provider Internal Medicine; Visit Provider Internal Medicine
DX: S83.241A Other tear of medial meniscus, current injury, right knee, initial encounter (principal); M76.51 Patellar tendinitis, right knee; M25.561 Pain in right knee; M79.651 Pain in right thigh; M25.461 Effusion, right knee; M94.8X8 Other specified disorders of cartilage, other site
CPT/HCPCS: 73721

== ENCOUNTER → 2023-07-22 09:11 | Outpatient (CLI) | payer BC, SELFPAY ==
[2022-01-06 23:51] VITALS: BMI 39.9
[2023-07-22 10:14] LABS: Add Manual Diff / Slide Review NO; Basophils Absolute Auto 0 /uL (0-100); Basophils Percent Auto 0.5 % (0-2); Eosinophils Absolute Auto 200 /uL (0-450); Eosinophils Percent Auto 2.5 % (2-4); Hematocrit 40.4 % (41-53); Hemoglobin 13.6 g/dL (13.5-17.5); Lymphocytes Absolute Auto 2100 /uL (1100-4500); Lymphocytes Percent Auto 25.5 % (25-40); Mean Corpuscular HGB Conc 33.7 % (30-36); Mean Corpuscular Hemoglobin 29.9 PG (26-34); Mean Corpuscular Volume 88.8 fL (80-100); Monocytes Absolute Auto 400 /uL (0-900); Monocytes Percent Auto 5.5 % (3-14); Neutrophils Absolute Auto 5300 /uL (1500-7000); Platelet Count 183 X10^3/uL (150-400); Red Blood Cell Count 4.55 X10^6/uL (4.5-5.9); Red Cell Distribution Width 13.9 % (11.6-14.8); White Blood Cell Count 8.1 X10^3/uL (4.5-11.0)
[2023-07-22 10:40] LABS: Alanine Aminotransferase 39 IU/L (<50); Albumin 4.4 g/dL (3.5-5.0); Albumin Globulin Ratio 1.5 (1.0-2.8); Alkaline Phosphatase 58 U/L (38-126); Aspartate Aminotransferase 43 IU/L (17-59); Blood Urea Nitrogen 23 mg/dL (9-20); Calcium 9.8 mg/dL (8.4-10.2); Carbon Dioxide 30 mmol/L (22-32); Chloride 100 mmol/L (98-107); Cholesterol 116 mg/dL (140-199); Estimated Glomerular Filt Rate > 60 mL/min (>60); Globulin 2.9 g/dL (1.7-4.1); Glucose 126 mg/dL (80-110); HDL Cholesterol 52 mg/dL (40-60); HEMOLYSIS < 15 (0-50); LDL Cholesterol Calculated 49 mg/dL (<100); Potassium 4.4 mmol/L (3.4-5.1); Sodium 137 mmol/L (137-145); Total Protein 7.3 g/dL (6.3-8.2); Triglycerides 73 mg/dL (35-150)
[2023-07-22 10:57] LABS: Free T4, Direct Thyroxine 1.15 ng/dL (0.78-2.19)
[2023-07-22 11:11] LABS: Thyroid Stimulating Hormone 1.17 uIU/mL (0.47-4.68)
== END ==
PROVIDERS: PCP Internal Medicine; Referring Provider Internal Medicine; Visit Provider Internal Medicine
DX: R00.1 Bradycardia, unspecified (principal); Z98.84 Bariatric surgery status; E11.9 Type 2 diabetes mellitus without complications
CPT/HCPCS: 36415; 80053; 80061; 84439; 84443; 85025

== ENCOUNTER 2024-03-20 00:51 | Emergency (ER) | payer BC, SELFPAY ==
[2022-01-06 23:51] VITALS: BMI 39.9
[2024-03-20 01:17] VITALS: BP 136/63; PULSE 50; RESP 16; TEMP 35.9; O2SAT 96; BMI 36.9
--- NOTE | 2024-03-20 01:55 | ED_ITS ---
HPI - Animal Bite General Chief Complaint: Animal Bite Stated Complaint: puncture wounds from animal on hands bleeding Time Seen by Provider: 03/20/24 01:46 Source: patient and family Mode of arrival: Ambulatory History of Present Illness HPI narrative: 63-year-old male with history of diabetes presents for evaluation of dog bite to bilateral hands. Patient was taking his elderly dog out when it slipped from the porch, falling several feet. When he went to go help the dog up it was confused and bit his hands. The dog is up-to-date on his vaccinations. Patient was not remember when his last tetanus shot was administered. Related Data Home Medications Medication Instructions Recorded Confirmed telmisartan 40 1 tab PO QDAY ##0 07/02/16 08/05/23 mg-hydrochlorothiazide 12.5 mg tablet (Micardis HCT) vitamin B complex (B 1 tab PO QDAY ##0 07/02/16 08/05/23 Complex-Vitamin B12 tablet) metformin 500 mg tablet,extended 500 mg PO BID 01/07/22 08/05/23 release 24 hr Previous Rx's Medication Instructions Recorded cyclobenzaprine 5 mg tablet 5 mg PO TID PRN muscle spasm #20 03/21/22 tabs albuterol sulfate 90 mcg/actuation 2 puff inhalation Q4-6H PRN 08/05/23 aerosol inhaler shortness of breath or wheezing #8.5 grams azithromycin 250 mg tablet See Rx Instructions PO .COMPLEX #6 08/05/23 tabs prednisone 20 mg tablet 40 mg (2 x 20 mg) PO DAILY #6 tabs 08/05/23 amoxicillin 875 mg-potassium 1 tab PO Q12H #20 tabs 03/20/24 clavulanate 125 mg tablet Allergies Allergy/AdvReac Type Severity Reaction Status Date / Time tamsulosin [From Flomax] Allergy Chest Pain Verified 08/05/23 14:26 Patient History Medical History Diabetes type 2, controlled Hyperthyroidism determined by thyroid function test Atrial fibrillation with rapid ventricular response Low back strain Surgical History S/P cervical spinal fusion Family History Daughter Graves disease Mother Atrial fibrillation, chronic Father Cardiac arrest Rheumatic fever Social History household members: spouse Smoking Status: Never smoker eating out: 1-3 times/week Type(s) of exercise: walking Smoking Status: Never smoker alcohol intake frequency: holidays/special occasions only Substance Use Type: marijuana Exam Initial Vital Signs Initial Vital Signs: Vital Signs Temperature 96.7 F L 03/20/24 01:17 Pulse Rate 50 L 03/20/24 01:17 Respiratory Rate 16 03/20/24 01:17 Blood Pressure 136/63 03/20/24 01:17 Pulse Oximetry 96 03/20/24 01:17 Oxygen Delivery Method Room Air 03/20/24 01:17 Const: Awake, alert, no acute distress, nontoxic appearing Cardiac: Bradycardia, regular rhythm MSK: No deformity, full range of motion, scattered bite wounds over fingers of bilateral hands, tendon function intact Skin: Warm, Dry, scattered puncture wounds over 2nd 3rd and 4th fingers of bilateral hands Neuro: AO x3, CN II-XII grossly intact, moves all extremities Course Orders Ordered: Discontinued Medications Diphtheria/Tetanus/Acell Pertussis (Tet,Diph,Pertuss(Acell),Vac/Pf 0.5 Ml Syringe) 0.5 ml IM .ONCE ONE Stop: 03/20/24 01:58 Last Admin: 03/20/24 02:26 Dose: 0.5 ml Documented By: ELIECER Vital Signs Vital signs: Vital Signs - 8 hr 03/20/24 01:17 Temperature 96.7 F L Pulse Rate 50 L Respiratory Rate 16 Blood Pressure 136/63 Pulse Oximetry 96 Oxygen Delivery Method Room Air MDM - Animal Bite MDM Narrative Medical decision making narrative: Accidental dog bite to bilateral hands. No evidence of tendon injury on exam, capillary refill intact, sensation intact and equal. Wounds are all cm or smal ler in size and do not cross any high tension areas. They were irrigated copiously by nursing staff with Betadine and normal saline. Tetanus shot updated. Antibiotics sent to pharmacy of choice. Wound care instructions and precautions discussed at bedside. Discharge Plan Departure Patient Disposition: Home Clinical Impression: Dog bite of hand Instructions: DI for Dog Bite Activity Restrictions/Additional Instructions: Keep your hands clean and dry. Do not keep your hand in soaking water or standing water. Finish all of your antibiotics even if you feel improved. Prescriptions: New amoxicillin-pot clavulanate 875-125 mg tablet 1 tab PO Q12H Qty: 20 0RF No Action cyclobenzaprine 5 mg tablet 5 mg PO TID PRN (Reason: muscle spasm) Qty: 20 0RF albuterol sulfate 90 mcg/actuation HFA aerosol inhaler 2 puff inhalation Q4-6H PRN (Reason: shortness of breath or wheezing) Qty: 8.5 0RF azithromycin 250 mg tablet See Rx Instructions PO .COMPLEX Qty: 6 0RF Rx Instructions: For 250 mg dose pack: take 500 mg today (day 1), then 250 mg for 4 days (days 2-5) PO prednisone 20 mg tablet 40 mg PO DAILY Qty: 6 0RF telmisartan-hydrochlorothiazid [Micardis HCT] 40 MG/12.5 MG tablet 1 tab PO QDAY Qty: 0 vitamin B complex [B Complex-Vitamin B12] 1 EACH tablet 1 tab PO QDAY Qty: 0 metformin 500 mg tablet extended release 24 hr 500 mg PO BID Referrals: Dariela Ang MD [Primary Care Provider] - Stand Alone Forms: Patient Portal/API
[2024-03-20] MEDS: TET,DIPH,PERTUSS(ACELL),VAC/PF 0.5 ML SYRINGE IM (02:26)
[2024-03-20 02:34] VITALS: BP 151/72; PULSE 50; RESP 18; O2SAT 98
== END 2024-03-20 02:36 | disposition home or self-care (01) ==
PROVIDERS: Emergency Provider Emergency Medicine; PCP Internal Medicine
DX: S61.257A Open bite of left little finger without damage to nail, initial encounter (principal); S61.253A Open bite of left middle finger without damage to nail, initial encounter; S61.255A Open bite of left ring finger without damage to nail, initial encounter; S61.250A Open bite of right index finger without damage to nail, initial encounter; S61.252A Open bite of right middle finger without damage to nail, initial encounter; S61.254A Open bite of right ring finger without damage to nail, initial encounter; W54.0XXA Bitten by dog, initial encounter; Z23 Encounter for immunization
CPT/HCPCS: 90471; 99283; 90715

== ENCOUNTER 2024-03-21 09:39 | Emergency (ER) | payer BC, SELFPAY ==
[2022-01-06 23:51] VITALS: BMI 39.9
[2024-03-21 09:44] VITALS: BP 136/75; PULSE 57; RESP 18; TEMP 36.2; O2SAT 97; BMI 36.9
--- NOTE | 2024-03-21 10:27 | ED_ITS ---
HPI - Recheck/Abnormal Lab/Rx General Chief Complaint: Recheck/Abnormal Lab/Rx Stated Complaint: Right fore finger dog bite Time Seen by Provider: 03/21/24 10:21 History of Present Illness HPI narrative: patient with a past medical history of diabetes, chronic pain, comes into the ED from home for evaluation of re-evaluation of dog bite. Patient states that yesterday at around 2:00 a.m. he got bit by his dog, was seen here and was treated appropriately. States that he comes into the ED today due to the fact that he is experiencing more pain /swelling to the right hand, states that he did not get imaging and is worried that he might have something broken. States that the symptoms are improved with Tylenol but given the fact that no imaging was performed he wanted make sure nothing was wrong. He denies any other symptoms traumas. No fever chills or other systemic symptoms Related Data Home Medications Medication Instructions Recorded Confirmed telmisartan 40 1 tab PO QDAY ##0 07/02/16 08/05/23 mg-hydrochlorothiazide 12.5 mg tablet (Micardis HCT) vitamin B complex (B 1 tab PO QDAY ##0 07/02/16 08/05/23 Complex-Vitamin B12 tablet) metformin 500 mg tablet,extended 500 mg PO BID 01/07/22 08/05/23 release 24 hr Previous Rx's Medication Instructions Recorded cyclobenzaprine 5 mg tablet 5 mg PO TID PRN muscle spasm #20 03/21/22 tabs albuterol sulfate 90 mcg/actuation 2 puff inhalation Q4-6H PRN 08/05/23 aerosol inhaler shortness of breath or wheezing #8.5 grams azithromycin 250 mg tablet See Rx Instructions PO .COMPLEX #6 08/05/23 tabs prednisone 20 mg tablet 40 mg (2 x 20 mg) PO DAILY #6 tabs 08/05/23 amoxicillin 875 mg-potassium 1 tab PO Q12H #20 tabs 03/20/24 clavulanate 125 mg tablet Allergies Allergy/AdvReac Type Severity Reaction Status Date / Time tamsulosin [From Flomax] Allergy Chest Pain Verified 08/05/23 14:26 Review of Systems Review of Systems Narrative: HEENT: Denies headache, eye drainage, eye irritation, head trauma, sore throat, voice change Cardiovascular: Denies any chest pain, palpitations, shortness of breath, tachycardia Respiratory: Denies any shortness of breath, cough, wheeze, stridor GI/: Denies any abdominal pain, nausea, vomiting, diarrhea, bright red blood per rectum, melanotic stools, urinary frequency, urinary retention, dysuria, hematuria MSK: Denies any joint pain, muscle pains, swelling to the right 1st finger Skin: Denies any rashes, lesions, discoloration Neuro: Denies any headache, lightheadedness, dizziness, fainting, weakness Psych: Denies SI/HI Patient History Medical History Diabetes type 2, controlled Hyperthyroidism determined by thyroid function test Atrial fibrillation with rapid ventricular response Low back strain Surgical History S/P cervical spinal fusion Family History Daughter Graves disease Mother Atrial fibrillation, chronic Father Cardiac arrest Rheumatic fever Social History household members: spouse Smoking Status: Never smoker eating out: 1-3 times/week Type(s) of exercise: walking Smoking Status: Never smoker alcohol intake frequency: holidays/special occasions only Substance Use Type: marijuana Exam Narrative Exam Narrative: General: Cooperative, comfortable, well-developed, not in acute distress HEENT: Normocephalic, atraumatic, PERRLA, normal sclera, eyelids normal, Neck: Active full range of motion, atraumatic Chest: Normal to inspection, negative crepitus, no overlying erythema ecchymosis Respiratory: Normal respiratory effort, not in acute respiratory distress, clear to auscultation bilaterally negative cough, wheeze, tachypnea, rhonchi, rales Cardiology: Regular rate rhythm negative gallop, murmur, rubs GI/: Normal to inspection, soft, nonrigid, no tenderness to palpation, exam deferred MSK: Full range of active range of motion of all 4 extremities, patient noted to have small laceration to the palmar aspect of the right index finger, no signs purulent drainage no cellulitis erythema, neurovascularly intact compartments soft no crepitus Skin: No rashes lesions noted Neuro: Alert awake oriented x3, moves all 4 extremities spontaneously, cranial nerves intact, able to answer all questions appropriately follows commands appropriately Psych: Cooperative, negative suicidal or homicidal ideations Initial Vital Signs Initial Vital Signs: Vital Signs Temperature 97.2 F L 03/21/24 09:44 Pulse Rate 57 L 03/21/24 09:44 Respiratory Rate 18 03/21/24 09:44 Blood Pressure 136/75 03/21/24 09:44 Pulse Oximetry 97 03/21/24 09:44 Oxygen Delivery Method Room Air 03/21/24 09:44 Course Orders Ordered: ED Orders 03/21/24 10:37 XR hand RT min 3V Stat Vital Signs Vital signs: Vital Signs - 8 hr 03/21/24 09:44 Temperature 97.2 F L Pulse Rate 57 L Respiratory Rate 18 Blood Pressure 136/75 Pulse Oximetry 97 Oxygen Delivery Method Room Air MDM - Recheck/Abnormal Lab/Rx Differential Diagnosis Differential diagnosis: Likely encounter for wound recheck Medical Records Attestation: I reviewed the patient's medical records. Lab Data Attestation: I reviewed the patient's lab results. [facility] Narrative Medical decision making narrative: patient is a 64-year-old male who presents for re-evaluation check of wound that was seen here less than 24 hours ago. Patient wound was due to a dog bite of his own. He is already on oral antibiotics outpatient. Presented because he was worried that he might have a broken bone given the fact that he did not have any imaging performed previously. X-rays were negative for any acute fractures or any other foreign bodies. Patient neurovascularly intact extremity, no signs of cellulitis or infection is already on oral antibiotics will be safe for outpatient follow-up with PCP Discharge Plan Departure Patient Disposition: Home Clinical Impression: Dog bite of hand Qualifiers: Encounter type: sequela Laterality: right Qualified Code(s): S61.451S - Open bite of right hand, sequela Activity Restrictions/Additional Instructions: Please continue taking your antibiotics as previously described, he starts developing fevers chills worsening redness or streaking please return to the nearest emergency department Please read the discharge instructions sheet carefully and bring all papers to all doctor follow-up visits, as it may contain information that your doctor may want to see. Disease processes change and evolve, if your symptoms worsen or if you develop any new symptoms that are concerning to you please return for evalu ation. Your evaluation today does not show any evidence of any life- threatening/serious illnesses requiring admission to the hospital or surgery. Please follow-up with your doctor for re-evaluation in approximately 1 day. Seek immediate medical attention for any worrisome symptoms. Prescriptions: No Action cyclobenzaprine 5 mg tablet 5 mg PO TID PRN (Reason: muscle spasm) Qty: 20 0RF albuterol sulfate 90 mcg/actuation HFA aerosol inhaler 2 puff inhalation Q4-6H PRN (Reason: shortness of breath or wheezing) Qty: 8.5 0RF azithromycin 250 mg tablet See Rx Instructions PO .COMPLEX Qty: 6 0RF Rx Instructions: For 250 mg dose pack: take 500 mg today (day 1), then 250 mg for 4 days (days 2-5) PO prednisone 20 mg tablet 40 mg PO DAILY Qty: 6 0RF telmisartan-hydrochlorothiazid [Micardis HCT] 40 MG/12.5 MG tablet 1 tab PO QDAY Qty: 0 vitamin B complex [B Complex-Vitamin B12] 1 EACH tablet 1 tab PO QDAY Qty: 0 amoxicillin-pot clavulanate 875-125 mg tablet 1 tab PO Q12H Qty: 20 0RF metformin 500 mg tablet extended release 24 hr 500 mg PO BID Referrals: Dariela Ang MD [Primary Care Provider] - Stand Alone Forms: Patient Portal/API
--- NOTE | 2024-03-21 10:37 | DI.RAD.S_ITS ---
PROCEDURE: XR HAND RT 2V INDICATIONS: laceration to right first finger TECHNIQUE: 3 views of the hand(s) acquired. COMPARISON: None. FINDINGS: Bones: No fractures or dislocations. Carpal bones are normally aligned. No suspicious bony lesions. Soft tissues: No suspicious soft tissue calcifications. IMPRESSION: No acute fracture or dislocation. No radiopaque foreign bodies. Dictated by: Omero Stovall M.D. on 03/21/2024 at 11:00 Approved by: Omero Stovall M.D. on 03/21/2024 at 11:02
== END 2024-03-21 12:11 | disposition home or self-care (01) ==
PROVIDERS: Emergency Provider Student in an Organized Health Care Education/Training Program; PCP Internal Medicine
DX: S61.451A Open bite of right hand, initial encounter (principal); W54.0XXA Bitten by dog, initial encounter
CPT/HCPCS: 73130; 99281; 99283